=== PATIENT | female | born 1940 | race Hispanic/Latino ===

== ENCOUNTER → 2018-06-13 08:47 | Outpatient (CLI) | payer MEDICARE, OTHER, SELFPAY ==
--- NOTE | 2018-06-13 | DI.US.S_ITS ---
PROCEDURE: US CAROTID DOPPLER BI INDICATIONS: symptoms and signs involving the circulatory TECHNIQUE: Color and pulse Doppler interrogation was performed of both carotid systems, with image documentation and velocity measurements. COMPARISON: [facility], , CAROTID ARTERY DOPPLER BILAT, 06/21/2017, 8:54. FINDINGS: Stenosis calculations are based on SRU (Society of Radiologists in Ultrasound) criteria. Right side: Brachial blood pressure: 104/77 mm Hg. Common carotid artery peak systolic velocity: 72 cm/sec. Internal carotid artery peak systolic velocity: 115 cm/sec. Internal carotid artery end diastolic velocity: 29 cm/sec. External carotid artery peak systolic velocity: 153 cm/sec. ICA/CCA peak systolic ratio: 1.61. Koenig scale imaging description: Calcified plaque Percent internal carotid artery stenosis: Less than 50%. Vertebral artery: Flow direction is antegrade. Left side: Brachial blood pressure: 136/86 mm Hg. Common carotid artery peak systolic velocity: 73 cm/sec. Internal carotid artery peak systolic velocity: 109 cm/sec. Internal carotid artery end diastolic velocity: 22 cm/sec. External carotid artery peak systolic velocity: 94 cm/sec. ICA/CCA peak systolic ratio: 1.48. Koenig scale imaging description: Calcified plaque Percent internal carotid artery stenosis: Less than 50%. Vertebral artery: Flow direction is antegrade. IMPRESSION: Less than 50% stenosis of the internal carotid arteries bilaterally stable compared to 06/21/2017 Dictated by: Ying Perla MD, PhD on 06/14/2018 at 11:47 Approved by: Ying Perla MD, PhD on 06/14/2018 at 11:49
== END ==
PROVIDERS: Visit Provider Internal Medicine Cardiovascular Disease
DX: I65.23 Occlusion and stenosis of bilateral carotid arteries (principal)
CPT/HCPCS: 93880

== ENCOUNTER → 2018-06-30 07:49 | Outpatient (CLI) | payer MEDICARE, OTHER, SELFPAY ==
--- NOTE | 2018-06-30 09:52 | P.PCN_ITS ---
Cardiac Stress Test Report Referral & Results Date Patient Seen: 06/30/18 Requesting provider: Gianni Hernandez Indication: Shortness of breath with exertion Rest ECG: Unremarkable Procedure Note: Today following both written and verbal informed consent the patient was exercised according to a standard Mitul protocol (although patient remained at stage I throughout) patient went for a total of 4 minutes achieving a maximum heart rate of 140 for maximum systolic blood pressure of 160 to. This is approximately 4.6 METS. Exercise was terminated at this point because of dyspnea and inability of patient to continue. Patient was also given Cardiolite through a previously started Hep-Lock IV by the licensed nuclear control room operator approximately 1 minute prior to the cessation of exercise. No ST-T segment changes were identified Patient was tachycardic at rest but had normal blood pressure response Functional aerobic impairment rates about-10% sedentary scale Impression: No ECG evidence of ischemia Please see perfusion imaging report for additional details Please note: Actual ECG tracings can be found in the PACS system.
--- NOTE | 2018-07-03 17:46 | DI.NM.S_ITS ---
DATE OF SERVICE: 06/30/2018 PROCEDURE: Exercise perfusion study. INDICATIONS: Shortness of breath with underlying diabetes mellitus, hypertension, hyperlipidemia. RADIOPHARMACEUTICAL: 25.4 mCi technetium-99m Myoview IV was injected at stress and 26.3 mCi technetium-99m Myoview IV was injected at rest. CARDIAC STRESS: Patient underwent exercise perfusion study under the supervision of an attending staff. She walked on Mitul protocol for 4 minutes 03 seconds achieved 4.6 METs of workload, normal blood pressure response, 101% of target heart rate. Patient felt shortness of breath and could not walk further. Baseline EKG revealed sinus rhythm. Stress EKG did not reveal any obvious inducible ischemic changes. There were no significant arrhythmias seen. RAW DATA: There was adequate myocardial uptick. GATED STUDY: Stress LV ejection fraction 91% and resting LV ejection fraction 87%. LV function appears to be hyperdynamic. No regional wall motion abnormalities. Resting end-diastolic volume is 53 mL. No transient ischemic dilatation. TID ratio is 0.71, which is within normal limits. Lung/heart ratio is 0.30, which is within normal limits. MYOCARDIAL PERFUSION SCAN: Stress supine, resting supine, and stress prone images were compared to each other. Patient had normal myocardial perfusion. CONCLUSION: This is a normal myocardial perfusion study without any evidence of ischemia or infarction. Patient walked on Mitul protocol for 4 minutes 03 seconds with functional aerobic impairment -10%. [place] shortness of breath during exertion. As far as perfusion scan is concerned, this is a low- risk myocardial perfusion scan. Consider pulmonary workup to rule out pulmonary etiology of shortness of breath. Roxann Donohue - JADA/mohsen/ doc#: [id number]/job#: [id number] dd: 07/03/2018 16:56:00 dt: 07/03/2018 17:34:00 DICTATING MD/COPIES TO: Gianni Hernandez MD COPIES MNE: JOSEMANUEL
== END ==
PROVIDERS: Visit Provider Internal Medicine Cardiovascular Disease
DX: R06.02 Shortness of breath (principal); E11.9 Type 2 diabetes mellitus without complications
CPT/HCPCS: 78452; 93016; 93017; 93018; A9502

== ENCOUNTER → 2020-02-11 10:06 | Outpatient (CLI) | payer MEDICARE, OTHER, SELFPAY ==
--- NOTE | 2020-02-11 | DI.US.S_ITS ---
PROCEDURE: US CAROTID DOPPLER BI INDICATIONS: BRUIT OF RIGHT CAROTID ARTERY TECHNIQUE: Color and pulse Doppler interrogation was performed of both carotid systems, with image documentation and velocity measurements. COMPARISON: [facility], XA, SI ANGIOGRAM SUBCLAVIAN, 08/08/2017, 13:32. [facility], , CAROTID ARTERY DOPPLER BILAT, 06/21/2017, 8:54. [facility], , US CAROTID DOPPLER BI, 06/13/2018, 9:15. FINDINGS: Stenosis calculations are based on SRU (Society of Radiologists in Ultrasound) criteria. Right side: Brachial blood pressure: 176/90 mm Hg. Common carotid artery peak systolic velocity: 61 cm/sec. Internal carotid artery peak systolic velocity: 87 cm/sec. Internal carotid artery end diastolic velocity: 21 cm/sec. External carotid artery peak systolic velocity: 111 cm/sec. ICA/CCA peak systolic ratio: 1.4 . Koenig scale imaging description: Atheromatous plaque is noted at the carotid bifurcation Percent internal carotid artery stenosis: Less than 50% stenosis . Vertebral artery: Flow direction is retrograde. This is unchanged from multiple prior studies dating back to June 21, 2017 Left side: Brachial blood pressure: 176/90 mm Hg. Common carotid artery peak systolic velocity: 60 cm/sec. Internal carotid artery peak systolic velocity: 81 cm/sec. Internal carotid artery end diastolic velocity: 18 cm/sec. External carotid artery peak systolic velocity: 66 cm/sec. ICA/CCA peak systolic ratio: 1.4 . Koenig scale imaging description: Atheromatous plaquing calcification is noted at the carotid bifurcation. Percent internal carotid artery stenosis: Less than 50% . Vertebral artery: Flow direction is antegrade. IMPRESSION: 1. Less than 50% stenosis of the bilateral internal carotid arteries. 2. Retrograde flow of the right vertebral artery which is unchanged from 2018 and may be associated with high-grade stenosis or occlusion of the right subclavian artery. Dictated by: Mehgna Vanessa M.D. on 02/11/2020 at 13:50 Approved by: Meghna Vanessa M.D. on 02/11/2020 at 14:00
== END ==
PROVIDERS: PCP Internal Medicine; Referring Provider Internal Medicine; Visit Provider Internal Medicine Cardiovascular Disease
DX: I65.23 Occlusion and stenosis of bilateral carotid arteries (principal); R09.89 Other specified symptoms and signs involving the circulatory and respiratory systems
CPT/HCPCS: 93880

== ENCOUNTER → 2020-07-03 07:27 | Outpatient (CLI) | payer MEDICARE, OTHER, SELFPAY ==
--- NOTE | 2020-07-03 | DI.MRI.S_ITS ---
PROCEDURE: MR HEAD/BRAIN WO/W CON INDICATIONS: Other abnormalities of gait and mobility TECHNIQUE: Noncontrast axial T1 spin echo, axial T2 fast spin echo, sagittal and axial FLAIR, coronal T2 fast spin echo, axial gradient echo, axial diffusion and ADC through the brain. After the administration of contrast, axial and coronal T1 spin echo with fat saturation through the brain. COMPARISON: None. FINDINGS: Image quality: Excellent. CSF spaces: Basal cisterns are patent. No extra-axial fluid collections. Ventricles are normal in size and shape. Brain: No midline shift. No intracranial bleeds or masses. No abnormal intracranial enhancement. There is cerebral volume loss for age. There is periventricular white matter chronic small vessel ischemic change. The brainstem appears normal. Diffusion-weighted images demonstrate no acute ischemic insults. No chronic ischemic insults. Normal intravascular flow voids are present. Skull and face: Calvarial marrow is normal in signal. Orbits appear normal. Sinuses: Sinuses and mastoids appear clear. IMPRESSION: 1. Volume loss and small vessel ischemic disease. 2. No acute process. No recent infarct. Dictated by: Deisy Barraza M.D. on 07/03/2020 at 9:07 Approved by: Deisy Barraza M.D. on 07/03/2020 at 9:08
== END ==
PROVIDERS: PCP Internal Medicine; Referring Provider Internal Medicine; Visit Provider Internal Medicine Cardiovascular Disease
DX: R26.89 Other abnormalities of gait and mobility (principal); I67.89 Other cerebrovascular disease
CPT/HCPCS: 70553

== ENCOUNTER 2020-11-10 16:18 | Emergency (ER) | payer MEDICARE, OTHER, SELFPAY ==
[2020-11-10 16:20] VITALS: BP 184/81; PULSE 102; RESP 22; TEMP 36.4; O2SAT 94
[2020-11-10 20:49] VITALS: BP 127/80; PULSE 81; RESP 12; O2SAT 98
--- NOTE | 2020-11-10 21:19 | ED_ITS ---
HPI - Back Pain/Injury General Chief Complaint: Back Pain/Injury Stated Complaint: LOWER BACK BAD PAIN Time Seen by Provider: 11/10/20 20:33 Source: patient History of Present Illness HPI Narrative: 80-year-old female nonsmoker with noncontributory medical history presents with a chief complaint of many weeks of bilateral low back pain into both hips. She denies any traumatic injury, fever and does not take anticoagulants. She has some numbness down the back of her left thigh more so than the right. She denies any saddle anesthesia. She denies any loss of control of bowel or bladder. She denies any lower extremity weakness. Her pain is worse when she moves and improves with rest. She has been taking Aleve and Tylenol with minimal help. She has seen her primary care provider who referred her for a brace, she has had no imaging. Related Data Previous Rx's Medication Instructions Recorded hydrocodone 5 mg-acetaminophen 325 1 tab PO Q4-6H PRN #10 tab 11/10/20 mg tablet methylprednisolone 4 mg tablets in See Rx Instructions .ROUTE 11/10/20 a dose pack (Medrol (Cristian)) .COMPLEX #21 ea Review of Systems Review of Systems Narrative: GENERAL: Denies chills, fatigue, malaise, fever, sweats. HEENT: Denies sinus pain, ear pain, sore throat, difficulty swallowing, dizziness. RESPIRATORY: Denies dyspnea, cough, wheezing, hemoptysis, sputum. CARDIOVASCULAR: Denies chest pain, palpitations, orthopnea, edema, GASTROINTESTINAL: Denies nausea, vomiting, abdominal pain, diarrhea, cons tipation, melena. : Denies dysuria, frequency, incontinence, hematuria, urinary retention. MUSCULOSKELETAL: See HPI SKIN: Denies rash, skin lesions, or other NEUROLOGIC: See HPI. PSYCHIATRIC: No concerning psychosocial issues. 12 point review of systems is negative except for those stated above Patient History Social History Smoking Status: Current some day smoker Smoking Status: Current some day smoker Exam Narrative Exam Narrative: GENERAL: [80] year old patient appears stated age. Well- developed patient, in mild distress. HEAD: Atraumatic. Normocephalic. EYES: Pupils equal round and reactive. Extraocular motions intact. No scleral icterus. No injection or drainage. ENT: Nose without bleeding, purulent drainage. Throat without erythema, tonsillar hypertrophy or exudate. Airway patent. NECK: Trachea midline. Non tender CARDIOVASCULAR: Regular rate and rhythm without murmurs, gallops, or rubs. RESPIRATORY: Clear to auscultation. Breath sounds equal bilaterally. No wheezes, rales, or rhonchi. GASTROINTESTINAL: Abdomen soft, non-tender, nondistended. EXTREMITIES: No edema or joint tenderness. BACK: decorative cutting machine tender but free of any obvious external abnormalities. Patient exam notes decreased range of motion and muscle spasm, but no CVA tenderness, or vertebral point tenderness. There are no symptoms of cauda equina such as saddle anesthesia, and decreased reflexes, decreased sensation or strength. NEURO: AOx3. SKIN: No rash or erythema of visible areas Initial Vital Signs Initial Vital Signs: Vital Signs Temperature 97.5 F L 11/10/20 16:20 Pulse Rate 102 H 11/10/20 16:20 Respiratory Rate 22 11/10/20 16:20 Blood Pressure 184/81 H 11/10/20 16:20 Pulse Oximetry 94 11/10/20 16:20 Course Orders Ordered: ED Orders 11/10/20 21:24 XR lumbar spine 2-3V Stat Discontinued Medications Hydrocodone Bitart/Acetaminophen (Hydrocodone/Acet 5/325 Prepack) 1 bottle MISC SEEINSTR ONE Stop: 11/10/20 22:14 Last Admin: 11/10/20 22:19 Dose: 1 bottle Documented by: CATE Vital Signs Vital signs: Vital Signs - 8 hr 11/10/20 20:49 11/10/20 22:21 Pulse Rate 81 63 Respiratory Rate 12 16 Blood Pressure 127/80 129/77 Pulse Oximetry 98 97 MDM - Back Pain/Injury Lab Data Labs: Urine Dip Bedside Urine Glucose Negative Bedside Urine Bilirubin - Negative Bedside Urine Ketone - Negative Urine Specific [place] 1.025 Bedside Urine Occult Blood - Negative Bedside Urine pH 6.0 Bedside Urine Protein - Negative Bedside Urine Urobilinogen - Negative Bedside Urine Nitrite - Negative Bedside Urine Leukocytes - Negative Esterase Imaging Data Lumbar Xray: Radiologist's Impression: Charanjit,Roxann 80 F [address] [id number] ReportSigned Patient: Roxann Donohue#: [id number]: 1940cct:[id number]/Sex: 80 / FDate of Service: 11/10/20Loc: EDAccession Number: [id number] Procedure: XR lumbar spine 2-3V Ordering Provider: Olaf Gilmore D.O. PROCEDURE: XR LUMBAR SPINE 2-3V INDICATIONS: severe lumbar pain TECHNIQUE: 3 views of the lumbar spine were acquired. COMPARISON: None. FINDINGS: Bones: 5 [id number] vertebrae are present. Grade 1 anterolisthesis of L4 on L5. Multilevel loss of intervertebral disc space height. Anterior vertebral body osteophytes. Endplate sclerosis. No vertebral body compression fractures. No suspicious bony lesions. Soft tissues: Overlying bowel gas pattern is normal. No suspicious soft tissue calcifications. IMPRESSION: No compression fracture. Extensive DDD. Dictated by: Lul Chiu M.D. on 11/10/2020 at 22:08 Approved by: Lul Chiu M.D. on 11/10/2020 at 22:09 [facility] Narrative Medical decision making narrative: Multiple etiologies of back pain considered including; Epidural abscess, cauda equina, mass occupying lesion, and other considered, however no red flag findings suggestive of a neuro surgical emergency are present. Return precautions given and questions answered to her apparent satisfaction Discharge Plan Departure Patient Disposition: Home Clinical Impression: Bilateral lumbar radiculopathy Instructions: DI for Lumbar Radiculopathy Activity Restrictions/Additional Instructions: *You have been diagnosed with [acute on chronic lumbar pain with radiculopathy] *What to do: *Please continue to take your regular medications as directed. [ x] New medication prescriptions sent to your pharmacy: [Base pharmacy ] [ ] New medication written as a paper prescription [ ] No new medications given *Please follow up with your primary care provider in 2-3 days, call for an appointment. Let them know you were seen in the Emergency Department and that we ask that you be seen in follow up. We will electronically transmit a record of today's note if your PCP is in our system *If you do not have a primary care provider please contact the [facility] Resource line at [phone]. They will ask some questions about your medical history and help get you set up with a doctor in the community. *Return to Emergency Department if you should have any new, worsening or concerning symptoms, such as [fever greater than 101 F, shaking chills, worsening pain, persistent vomiting or other bothersome symptoms] Prescriptions: New hydrocodone-acetaminophen 5-325 mg tablet 1 tab PO Q4-6H PRN (Reason: pain) Qty: 10 RF: 0 methylprednisolone [Medrol (Cristian)] 4 mg tablets,dose pack See Rx Instructions .ROUTE .COMPLEX Qty: 21 RF: 0 Referrals: Hernan Frost MD [Primary Care Provider] -
--- NOTE | 2020-11-10 21:24 | DI.RAD.S_ITS ---
PROCEDURE: XR LUMBAR SPINE 2-3V INDICATIONS: severe lumbar pain TECHNIQUE: 3 views of the lumbar spine were acquired. COMPARISON: None. FINDINGS: Bones: 5 [id number] vertebrae are present. Grade 1 anterolisthesis of L4 on L5. Multilevel loss of intervertebral disc space height. Anterior vertebral body osteophytes. Endplate sclerosis. No vertebral body compression fractures. No suspicious bony lesions. Soft tissues: Overlying bowel gas pattern is normal. No suspicious soft tissue calcifications. IMPRESSION: No compression fracture. Extensive DDD. Dictated by: Lul Chiu M.D. on 11/10/2020 at 22:08 Approved by: Lul Chiu M.D. on 11/10/2020 at 22:09
[2020-11-10] MEDS: HYDROCODONE/ACET 5/325 PREPACK 1 BOTTLE MISC (22:19)
[2020-11-10 22:21] VITALS: BP 129/77; PULSE 63; RESP 16; O2SAT 97
== END 2020-11-10 22:22 | disposition home or self-care (01) ==
PROVIDERS: Emergency Provider Emergency Medicine; PCP Internal Medicine
DX: M54.16 Radiculopathy, lumbar region (principal)
CPT/HCPCS: 72100; 81003; 99283

== ENCOUNTER → 2020-11-28 11:22 | Outpatient (CLI) | payer MEDICARE, OTHER, SELFPAY ==
--- NOTE | 2020-11-28 | DI.MRI.S_ITS ---
PROCEDURE: MR LUMBAR SPINE WO CON INDICATIONS: Lesion of sciatic nerve, left lower limb TECHNIQUE: Noncontrast sagittal T1 spin echo and T2 fast echo, sagittal STIR, axial T1 and T2 fast spin echo through the lumbar spine. In cases with scoliosis, additional coronal T2 fast spin echo may be performed. COMPARISON: None. FINDINGS: Image quality: Excellent. Alignment and Curvature: There is minimal retrolisthesis at L1-L2, with mild retrolisthesis at L2-L3. Minimal retrolisthesis is seen at L3-L4. There is mild grade 1 anterolisthesis at L4-L5. Minimal retrolisthesis can be seen at L5-S1. Bone Marrow: Marrow is of normal overall signal. No acute vertebral body compression fractures. Spinal Cord: Conus medullaris terminates at the T12-L1 level. Visualized cord demonstrates normal signal and size. Paraspinous Soft Tissues: No paravertebral masses. T12-L1: Normal appearance. L1-L2: Moderate to severe loss of disc height and disc signal can be seen. Moderate generalized disc bulge is seen. Mild facet joint hypertrophy is seen. Mild to moderate bilateral neural foraminal narrowing can be seen. Mild to moderate central canal narrowing is seen. L2-L3: Moderate to severe loss of disc height and disc signal can be seen. Reactive marrow endplate changes are seen, which are hyperintense on T1-weighted and T2-weighted imaging and most consistent with fatty metaplasia (Modic type II changes). At least moderate disc bulge is seen, which is eccentric to the left. There is at least moderate facet hypertrophy seen. There is moderate right-sided and moderate to severe left-sided neural foraminal narrowing seen. There is a degree of compression seen upon the exiting left L2 nerve root. At least moderate central canal narrowing is seen. L3-L4: Moderate loss of disc height is seen. Loss of disc signal is seen. Moderate generalized disc bulge is seen. Mild to moderate facet hypertrophy is seen. There is moderate to severe bilateral neural foraminal narrowing seen, left worse than right. There is a degree of compression seen upon the exiting nerve roots. Mild to moderate central canal narrowing is seen. L4-L5: Moderate loss of disc height is seen. Loss of disc signal is seen. Moderate disc bulge is seen, with a central disc bulge/central disc uncovering. Prominent facet hypertrophy is seen at this level. There is moderate to severe bilateral neural foraminal narrowing seen. There is a degree of compression seen upon the exiting nerve roots. Moderate to severe central canal narrowing is seen at this level, as on series 6, image 19. L5-S1: Moderate loss of disc height is seen. Loss of disc signal is seen. Moderate generalized disc bulge is seen, with a mild central disc protrusion. Moderate facet joint hypertrophy is seen. There is moderate right-sided and moderate to severe left-sided neural foraminal narrowing seen. There is a degree of compression seen upon the exiting left L5 nerve root. At least moderate central canal narrowing is seen. IMPRESSION: Multiple levels of lumbar spine degenerative change are seen, which are overall worst at the L4-L5 level. Several sites of significant neural foraminal narrowing can be seen, with associated exiting nerve root compression. Dictated by: Severiano Fuentes M.D. on 11/28/2020 at 11:45 Approved by: Severiano Fuentes M.D. on 11/28/2020 at 11:49
== END ==
PROVIDERS: PCP Family Medicine; Referring Provider Family Medicine; Visit Provider Family Medicine
DX: G57.02 Lesion of sciatic nerve, left lower limb (principal); M47.816 Spondylosis without myelopathy or radiculopathy, lumbar region; M47.817 Spondylosis without myelopathy or radiculopathy, lumbosacral region; M48.061 Spinal stenosis, lumbar region without neurogenic claudication; M48.07 Spinal stenosis, lumbosacral region
CPT/HCPCS: 72148

== ENCOUNTER → 2021-02-09 13:20 | Outpatient (CLI) | payer MEDICARE, OTHER, SELFPAY ==
--- NOTE | 2021-02-09 13:27 | DI.CT.S_ITS ---
PROCEDURE: CT LUMBAR SPINE WO CON INDICATIONS: Spondylolisthesis, lumbar region TECHNIQUE: Noncontrast 3 mm thick sections acquired from the T12 level to the sacrum. Sagittal and coronal reformats were constructed. For radiation dose reduction, the following was used: automated exposure control. COMPARISON: [facility], MR, MR LUMBAR SPINE WO CON, 11/28/2020, 12:00. FINDINGS: Image quality: Excellent. Bones: No acute vertebral body compression fractures. No suspicious lytic or blastic bony lesions. Grade 1 anterolisthesis is seen at the L4-L5 level. No associated pars defects are seen. Minimal retrolisthesis is seen at L1-L2 and L2-L3. Age-appropriate lower thoracic spine degenerative changes are seen. T12-L1: No significant abnormality is seen. L1-L2: At least moderate loss of disc height is seen. Vacuum disc phenomenon is seen at this level. Endplate irregularity and sclerosis can be seen. Moderate disc bulge is seen. Calcification can be seen involving posterior aspect of the annulus fibrosus, as on series 6, image 33. Mild facet joint hypertrophy is seen. There is moderate left-sided and moderate to severe right-sided neural foraminal narrowing seen. Moderate central canal narrowing is seen. L2-L3: At least moderate loss of disc height is seen. Postoperative changes are seen at this level, with removal of portions of posterior elements. Endplate irregularity and sclerosis can be seen. At least moderate disc bulge is seen. Mild facet joint hypertrophy is seen. There is moderate to severe left-sided and [id number] right-sided neural foraminal narrowing seen. At least moderate central canal narrowing is seen at this level. L3-L4: Moderate loss of disc height is seen. At least moderate disc bulge is seen. Moderate facet joint hypertrophy is seen. Moderate bilateral neural foraminal narrowing is seen. Moderate central canal narrowing is seen. L4-L5: Moderate loss of disc height is seen. Loss of disc signal is seen. Vacuum disc phenomenon is seen at this level. At least moderate disc bulge is seen. Prominent facet hypertrophy is seen. Moderate to severe bilateral neural foraminal narrowing can be seen, right worse than left. There is severe central canal narrowing. L5-S1: At least moderate loss of disc height is seen. Moderate to prominent disc bulge is seen. Bridging endplate osteophytes are seen. There is moderate bilateral neural foraminal narrowing seen at this level. Mild to moderate central canal narrowing is seen. Soft tissues: No retroperitoneal masses or hematomas. Visualized aorta is normal in caliber. Atherosclerotic calcification is noted. IMPRESSION: Multiple levels of lumbar spine degenerative change are seen, which are overall most prominent at the L4-L5 level. The degenerative changes are overall better seen on the recent prior MRI examination. Dictated by: Severiano Fuentes M.D. on 02/09/2021 at 17:13 Approved by: Severiano Fuentes M.D. on 02/09/2021 at 17:17
== END ==
PROVIDERS: PCP Family Medicine; Referring Provider Orthopaedic Surgery Orthopaedic Surgery of the Spine; Visit Provider Orthopaedic Surgery Orthopaedic Surgery of the Spine
DX: M43.16 Spondylolisthesis, lumbar region (principal); M47.816 Spondylosis without myelopathy or radiculopathy, lumbar region
CPT/HCPCS: 72131

== ENCOUNTER → 2021-02-16 09:45 | Outpatient (CLI) | payer MEDICARE, OTHER, SELFPAY ==
[2021-02-16 12:45] LABS: COVID19 -Nasal RAPID Negative (Negative)
== END ==
PROVIDERS: PCP Family Medicine; Visit Provider Physician Assistant
DX: Z01.812 Encounter for preprocedural laboratory examination (principal); Z20.822 Contact with and (suspected) exposure to COVID-19
CPT/HCPCS: 87635

== ENCOUNTER 2021-02-18 11:20 | Day surgery (SDC) | payer MEDICARE, OTHER, SELFPAY ==
[2021-02-10 09:46] VITALS: BMI 27.6
[2021-02-18] VITALS (28 sets, daily range): BP systolic 71–164; BP diastolic 43–84; PULSE 94–115; RESP 12–26; TEMP 36.1–36.5; O2SAT 16–100; BMI 27.6
--- NOTE | 2021-02-18 | DI.RAD.S_ITS ---
PROCEDURE: XR LUMBAR SPINE 2-3V INDICATIONS: L4-5 L5-S1 TLIF TECHNIQUE: 3 views of the lumbar spine were acquired. COMPARISON: [facility], DEXTER, XR LUMBAR SPINE 2-3V, 11/10/2020, 21:28. FINDINGS: Spot fluoroscopic images demonstrating L4-L5 and L5-S1 posterior spinal fixation with interbody cage grafts. Expected intraoperative alignment. Dictated by: Oscar Romero M.D. on 02/19/2021 at 11:57 Approved by: Oscar Romero M.D. on 02/19/2021 at 11:58
[2021-02-18] MEDS: LACTATED RINGERS 1,000 ML 42 ML IV ×3 (12:31→19:02)
--- NOTE | 2021-02-18 13:08 | PM.PREOP ---
Pre-operative Note COVID-19 COVID-19 status: Negative Result date/Date tested (Pos, Neg/Pending): 02/16/21 Interval Note History & Physical reviewed/Exam performed by Physician: Yes Changes to H&P: No
[2021-02-18] MEDS: CEFAZOLIN 1 GM VIAL 2 GM IV ×2 (14:15→21:42)
[2021-02-18] MEDS: BUPIVACAINE LIPOSOME 266 MG/20 ML VIAL INJ (14:41)
[2021-02-18] MEDS: BUPIVACAINE 0.25% (PF) 30 ML, EPINEPHrine 0.3 MG INJ (14:41)
--- NOTE | 2021-02-18 14:44 | SUR.OPER ---
Prone on spine table, head in foam head support, padded chest and pelvic supports, gel pad at knees, lower legs supported by pillows; nipples, genitalia and toes free of pressure, gel pad placed between heels, arms secured on foam padded arm boards at <90 degrees abduction. Tape over blanket at thigh secured to table.
--- NOTE | 2021-02-18 17:59 | P.OP_ITS ---
Operative Date/Time/Diagnoses Date of procedure: 02/18/21 Time of procedure: 13:00 Pre-op diagnosis: 1. L4-5, L5-S1 spondylolisthesis 2. L4-5, L5-S1 spinal stenosis with neurogenic claudication Post-op diagnosis: same Procedure & Clinicians Procedure: 1. L4-5, L5-S1 Postero-lateral and posterior interbody fusion 2. L4-5, L5-S1 interbody cage placement. 3. L4-5, L5-S1 decompressive laminectomy with bilateral facetecomies 4. L4-5, L5-S1 Posterior segmental instrumentation 5. [place] of bone marrow from iliac crest 6. Utilization of microsurgical technique and operating microscope 7. Robotic assisted navigation Same procedure as scheduled: Yes Indications: Patient has been having chronic back pain and worsening lumbar radiculopathy. Patient failed multiple conservative management with worsening pain weakness and numbness in her lower extremity. Patient has been having difficulty performing activity of daily living. After discussing risks benefits of treatment options, patient elected proceed with surgery. Surgeon: Guillaume Scuhler Mannequin Mold Maker: Kevon Burrows Click Yes if Unassisted: No Anesthesia Type: General Operative Notes Closure Type: primary Specimen(s): none sent Prosthetic devices, grafts, tissues, transplants, or devices: Globus CREO MIS screws, Rise cages Applied: catheter Estimated Blood Loss (mL): 200 Blood products transfused: none Procedure in detail: Patient was seen in the preoperative area. Risks and benefits of the surgery was discussed with the patient. Informed consent was obtained from the patient and placed in the chart. Surgical site was marked. Patient was taken to the operative room. General anesthesia was administered. Prophylactic antibiotic was given to the patient less than 30 min before the incision was made. Patient was placed into a prone position on the [place]ingo table. Patient's back was then prepped and draped in the sterile fashion. Time-out was performed at this time. After patient was prepped and draped, patient's PSIS was palpated and marked bilaterally. Small 1 cm incision was made over the PSIS for placement of the reference probes. Two trocar was placed into the PSIS 1 on each side. The reference probe was attached to the trocar of the reference apparatus. At this time the C-arm imaging was used to confirm AP and lateral of L4-L5, L5- S1 vertebrae and merged the C-arm imaging using the [employer] robotic navigation system with the CT of the lumbar spine. After successful merging was completed and confirmed, skin marker was used to marcellus out the skin incision using the [employer] robotic arm. Bilateral incision was made at this time. Pre templated trajectory was used and guided using the [employer] robotic navigation system for bilateral L4, L5, S1 pedicle screw placement. This was done by using the robotic arm to guide the high-speed bur to make a cortical entry point. Next a drill was placed also using the robotic arm and guided using the navigation system drilling partially through bilateral L4, L5 and S1 pedicles. Next L4, L5, S1 pedicle screws it was pre templated and measured was placed onto the power lokie driver and inserted into the pedicles bilaterally. After all 6 screws were placed C-arm imaging was taken of both AP and lateral to confirm the placement. Excellent placement of the screws were confirmed and a matched precisely with the pre planned screw placement using the navigation system. MARs retractor was inserted using [employer] gu[employer]. Globus MARS retractors was placed inside the incision and docked onto the L4 and L5 lamina. Using microsurgical technique and operating microscope, a L4, L5 laminectomy and L4-5, L5-S1 facetectomy was performed using a [place] rongeur. Patient was found have severe lateral recess and neural foramen stenosis which was fully decompressed after the laminectomy facetectomy. During process of the laminectomy at L4-5 level, there was identified to have significant amount of adhesion between the ligamentum flavum and the dura. After the laminectomy was completed, there was a small pinhole size dural defect at the L4-5 level on the dorsum aspect. DuraGen and Tisseel was placed into the epidural space on top of the dural defect. There was no CSF leakage. More than 75% of the facets were removed during the process of decompression rendering L4-5, L5-S1 level grossly unstable and required a fusion procedure at the same time. The disc space at L4-5, L5-S1 was identified, and a total diskectomy was performed at L4-5, L5-S1 level. The endplates were decorticated using a rasp and shaver. The total diskectomy and decortication was performed at L4-5, L5-S1 level in order to to accomplish a L4-5, L5-S1 fusion. The local bone from the laminectomy and facetectomy was saved for local bone grafting. After the total diskectomy and d ecortication was completed, Trifecta bone graft material was combined with local bone that was harvested earlier. At this time, a separate skin is incision was made over the iliac crest. A Jamshidi needle was inserted into the iliac crest through a separate skin incision. 5 cc of bone marrow aspiration was obtained through the separate skin incision using a Jamshidi needle from the iliac crest. The bone marrow aspiration was combined with local bone and the Trifecta bone grafting material. The bone grafting material was placed into the L4-5, L5-S1 interbody space along with a expandable cage. The cage was expanded to its maximum height using the torque limiting screwdriver. The disc preparation as well as the cage insertion were also performed under navigation guidance. After the cage was placed, AP and lateral C-arm imaging was taken to confirm placement of the cage and excellent position was confirmed. Globus MARS retractor was inserted and docked onto the L4-5, L5-S1 salesperson children's shoes olateral gutter on the right side. Using the power drill, posterior-lateral decortication was performed at L4-5, L5-S1 level until bleeding cortical bone was identified. The remaining bone grafting material was placed into the L4-5, L5-S1 posterior lateral gutter he order to accomplish posterolateral fusion at the L4-5, L5-S1 level. At this time the tulips were attached to the L4, L5, S1 pedicle screw shanks. After measuring the length of the rods, they were inserted into the tulips of the pedicle screws and locked in place using locking caps and torque limiting screwdriver bilaterally. Total 6 caps and 2 titanium rods was used in order to complete the posterior instrumentation construct. After all the hardware was placed, and confirmed with AP and lateral C-arm imaging, the wound was then irrigated with sterile normal saline and packed with Ray-Lukas gauze for 3 min to accomplish hemostasis. After the gauze was removed the deep fascia was closed with #1 Vicryl suture. The subcutaneous layer was closed with 2-0 Vicryl. The skin was closed with skin denilson. Patient tolerated the procedure well. There were no complications. Neuro monitoring system was used to monitor patient's neurologic status throughout entire procedure. There was no disturbance of the neural monitoring signals throughout the case. Complications: none Post-operative Condition: stable Disposition: PACU Plan for aftercare: Admit to inpatient hospital
[2021-02-18] MEDS: PHENYLEPHRINE HCL IN 0.9% NACL 1 MG/10 ML SYRINGE 100 MG INJ (18:22)
[2021-02-18] MEDS: fentaNYL 100 MCG/2 ML INJ IV ×2 (18:38→18:52)
[2021-02-18] MEDS: OXYCODONE/ACETAMINOPHEN 5/325 TABLET 1 TAB PO (18:54)
[2021-02-18] MEDS: SODIUM CHLORIDE 0.9% 1,000 ML 100 ML IV (20:00)
[2021-02-18] MEDS: buPROPion XL 150 MG TAB PO (21:40)
[2021-02-18] MEDS: DOCUSATE 100 MG CAPSULE PO (21:40)
[2021-02-18] MEDS: ATORVASTATIN 20 MG TABLET 40 MG PO (21:40)
[2021-02-18] MEDS: METOPROLOL ER 25 MG TABLET PO (21:40)
[2021-02-18] MEDS: SENNOSIDES 8.6 MG TABLET 17.2 MG PO (21:41)
[2021-02-19] VITALS (9 sets, daily range): BP systolic 93–118; BP diastolic 49–69; PULSE 72–99; RESP 12–18; TEMP 35.8–36.7; O2SAT 93–96
[2021-02-19] MEDS: HYDROMORPHONE 0.5 MG INJ IV ×3 (04:07→17:46)
[2021-02-19] MEDS: CEFAZOLIN 1 GM VIAL 2 GM IV (04:50)
[2021-02-19 05:39] LABS: Hematocrit 33.6 % (36-46); Hemoglobin 11.1 g/dL (12.0-16.0)
[2021-02-19] MEDS: SODIUM CHLORIDE 0.9% 1,000 ML 100 ML IV ×2 (06:22→18:36)
[2021-02-19] MEDS: METFORMIN HCL 500 MG TABLET PO (08:15)
[2021-02-19] MEDS: buPROPion XL 150 MG TAB PO ×2 (08:15→21:02)
[2021-02-19] MEDS: DOCUSATE 100 MG CAPSULE PO ×2 (08:15→21:02)
--- NOTE | 2021-02-19 11:01 | PT.IIE ---
Current Diagnoses Spondylolisthesis, lumbar region (02/18/21) Spinal stenosis, lumbar region with neurogenic claudication (02/18/21) Surgery Performed Operation Date: 02/18/21 13:15 Actual Procedures p L4-5, L5-S1 TLIF w. posterior instrumentation- Robot - Guillaume Schuler MD Medical History (Last Reviewed 02/19/21 @ 11:03 by Ryann Blanton PA-C) Arthritis COPD (chronic obstructive pulmonary disease) CVA (cerebral vascular accident) Diabetes (~2016) Eczema Emphysema lung HLD (hyperlipidemia) HTN (hypertension) PAD (peripheral artery disease) Sinus tachycardia Physical Therapy Inpatient Evaluation/Re-Eval M1 PT/OT-IP Prior Functional Status Start: 02/19/21 14:17 Freq: NEEDED Status: Active Protocol: Document 02/19/21 11:01 AB (Rec: 02/19/21 14:28 AB [email or web address]) Medical Review Prior Functional Status Medical History Reviewed Yes Communication able to make needs known Mobility and Gait pt stated that she is modified independent with all mobilities and ambulation without AD indoors but uses a 4WW for outdoor mobility Social History Household Members spouse Living Arrangements House Number of Floors (Floors) One Floor Number of Stairs To Enter/Railing? 5 steps B rails to enter Home Environment Standard Height Toilet,Tub/ Shower Home Equipment Front Wheel Walker,Four Wheel Walker M2 PT-IP Current Condition Start: 02/19/21 14:17 Freq: NEEDED Status: Active Protocol: Document 02/19/21 11:01 AB (Rec: 02/19/21 14:28 AB [email or web address]) Physical Therapy Current Condition Current Condition Evaluation Date 02/19/21 Treatment Diagnosis s/p L4-5, L5S1 TLIF; difficulty in walking Onset Date 02/18/21 M3 PT-IP Subjective Start: 02/19/21 14:17 Freq: NEEDED Status: Active Protocol: Document 02/19/21 11:01 AB (Rec: 02/19/21 14:28 AB [email or web address]) Subjective Physical Therapy Visit Type Type Initial Evaluation Visit Start Time 11:01 Visit Stop Time 11:44 Total Visit Minutes 43 Number of LAW OFFICE ASSISTANT Visits 0 Physical Therapy Visit Comments Patient Comments agreeable to do PT; c/o increase pain Therapy Pain Assessment Pain When Pain Assessed At Rest Pain Present Pain Present Pain Reported Location Back Intensity 7 Scale Used Numeric (0 - 10) Pain Management Techniques Apply Cold,Distraction, Modification of Treatment,Re- positioning,Timing of Activity with Medications M4 PT-IP Mobility and Gait Start: 02/19/21 14:17 Freq: NEEDED Status: Active Protocol: Document 02/19/21 11:01 AB (Rec: 02/19/21 14:28 [email or web address]) PT-Bed Mobility Assessment Rolling Type of Rolling Log Rolling Level of Assist Maximal Assistance,2 Person Assistance Supine to Sit Supine to Sit Maximum Assistance,2 Person Assistance Scooting Scooting to Edge of Bed Maximum Assistance PT-Transfer Assessment Sit to and From Stand Sit to and from Stand Maximum Assistance,2 Person Assistance,Use of Upper Extremities Equipment Transfer Assistive Device Gait Belt,Front Wheeled Walker Orthotic/Prosthetic Devices or Brace: No Transfers Transfer Destination Chair Transfer Technique ambulated using FWW Transfer Ability Level of Assist Maximum Assistance,1 Person Assistance,Use of Upper Extremities Comments Mobility Comments educated on back precautions and log roll bed mobility. completed log roll max A x 2 and max cues and supine to sit max A x 2 and max cues. c/o increase pain with increase guarding. tolerated sitting on EOB mod A for balance. agreed to stand and completed sit to stand max A x 2 and max cues. 2 attempts needed to get to standing position. ambulated using FWW max A and max cues ~ 6 ft to chair . positioned pt on chair. call light and table placed wtihin reach. Gait Assessment Gait Gait Assistance Required: Maximum Assistance,1 Person Assist Distance (Feet) 6 Able to Maintain Weight Bearing Status Yes During Gait Assistive Devices Assistive Device Gait Belt,Front Wheeled Walker Orthotic/Prosthetic Devices or Brace: No Gait Deviations General Gait Pattern Antalgic,Decreased Stride Length,Decreased Feet Clearance,Step-to Gait Factors Limiting Gait Function Factors Limiting Gait Function Decreased Activity Tolerance, Decreased Strength,Limited Range of Motion,Pain,Poor Balance PT-Balance Assessment Sitting Balance and Reactions Static Sitting Balance Ability Good Dynamic Sitting Balance Ability Fair Standing Balance and Reactions Static Standing Balance Ability Poor Dynamic Standing Balance Ability Poor Device Used FWW M5 PT-IP Objective Assessments Start: 02/19/21 14:17 Freq: NEEDED Status: Active Protocol: Document 02/19/21 11:01 AB (Rec: 02/19/21 14:28 [email or web address]) Orientation Orientation/Cognition Level of Alertness Alert Orientation Name,Age,Birthday,Month,Place, Situation Language Function Ability No Deficits Noted Safety Awareness Decreased Safety Awareness Gross Range of Motion Lower Extremity ROM Assessment Within Functional Limits Strength Lower Extremity Strength Assessment Bilaterally Impaired Hip 3+/5 Knee 3+/5 Comments Strength Comments pain limiting movement on BLE Sensation Assessment Sensation Gross Sensation WNL Muscle Tone Muscle Tone WNL Yes M6 PT-IP Treatment Start: 02/19/21 14:17 Freq: NEEDED Status: Active Protocol: Document 02/19/21 11:01 AB (Rec: 02/19/21 14:28 [email or web address]) Physical Therapy Treatment Education Education Provided Precautions,Weight Bearing Status,Safety M7 PT-IP Assessment and Plan Start: 02/19/21 14:17 Freq: NEEDED Status: Active Protocol: Document 02/19/21 11:01 AB (Rec: 02/19/21 14:28 [email or web address]) PT Summary Assessment and Plan Potential Rehabilitation Potential Fair Status of Condition at Evaluation Evolving Summary Impairments Pain,ROM,Strength,Balance, Coordination,Sensation,Tone, Cognition,Bed Mobility, Transfers,Gait,Activity Tolerance Assessment Summary pt requiring max A x2 with bed mobility and sit to stand but able to ambulate max A using fWW. pt c/o increase pain affecting mobility. caregiver training set up for tomorrow at 1030 am. will continue to assess safety. Goals Bed Mobility Goal Standby Assistance Transfer Goal Standby Assistance,Front Wheeled Walker Gait Goal Standby Assistance,Front Wheel Walker Gait Distance 150 Other Goals up/down 5 steps B rails SBA Days to Meet Goals 5 Frequency of Treatment Frequency Of Treatment Twice a Day Treatment Plan Physical Therapy Treatment Plan Bed Mobility Training,Transfer Training,Gait Training, Therapeutic Exercise,Balance Retraining,Post Op Education, Discharge Planning,Hot or Cold Pack,Neuromuscular Re-ed, Coordination Retraining,Manual Therapy Other Recommendations and Next Treatment caregiver trainin02/20/21 @ [facility] 1030 am Precautions Lumbar Precautions Log Roll,No Twisting,Limit Bending,Lifting Restriction of 10 lbs,Gait Belt above Incisional Area Recommendations To Nursing Amount of Assist Needed 2 Person Assist Discharge Recommendations PT Discharge Recommendations Home with 24/ Assist Available,Home Health Transportation Needs at Discharge Private Vehicle
--- NOTE | 2021-02-19 11:02 | P.PN_ITS ---
Subjective Subjective Date Patient Seen: 02/19/21 Time Patient Seen: 11:02 Interval history: The patient is complaining of moderate to severe low back pain. She has not been consistently using her oral pain medications. She tried work with OT but was in too much pain. She denies any new numbness or tingling. No fevers, chills, night sweats. Her plan is to eventually be discharged home under the care of her , although that will likely not be today Exam Vital Signs (past 8 hours): - 02/19/21 05:02 02/19/21 09:20 Temperature 97.8 F 96.5 F L Pulse Rate 85 83 Respiratory Rate 14 15 Blood Pressure 111/61 105/59 L Pulse Oximetry 94 95 Oxygen Delivery Method Nasal Cannula Oxygen Flow Rate 0 Narrative Exam Narrative: Pleasant 80-year-old female, resting in bed, mild distress due to pain. Dressing has bloody drainage on the left lateral incision. No surrounding erythema or induration. Bilateral lower extremity motor function is grossly intact. Sensation is grossly intact to light touch in bilateral lower e xtremities. Calves are soft, nontender to palpation. Objective Labs Result Diagrams: 02/19/21 05:00 Labs: Laboratory Results - last 24 hr 02/19/21 05:00 Hgb 11.1 L Hct 33.6 L PFSH Medical History Arthritis COPD (chronic obstructive pulmonary disease) CVA (cerebral vascular accident) Diabetes (~2016) Eczema Emphysema lung HLD (hyperlipidemia) HTN (hypertension) PAD (peripheral artery disease) Sinus tachycardia Surgical History History of bilateral tubal ligation History of section History of PTCA (07/31/20) Hx of bilateral cataract extraction Hx of repair of right rotator cuff Social History household members: spouse Smoking Status: Former smoker alcohol intake: never Assessment & Plan Post-op Postoperative Procedures: Procedures Operation Date: 02/18/21 13:15 Actual Procedure Side Surgeon p L4-5, L5-S1 TLIF w. posterior instrumentation- Robot Guillaume Schuler MD Postoperative day: 1 Postoperative status: marginal pain control Postoperative status narrative: Stable status post L4-5, L5-S1 TLIF -marginal pain control Postoperative plan narrative: -mobilize with PT. Limit bending, lifting, twisting. Weightbearing as tolerated front wheel walker -encouraged patient to stay ahead of the pain by taking her oral pain medica tions. -disposition likely home tomorrow once cleared by PT and pain is better controlled Quality VTE Deep Vein Thrombosis/Pulmonary Embolism Present on Admission: Yes
--- NOTE | 2021-02-19 15:00 | PT.IPTN ---
Current Diagnoses Spondylolisthesis, lumbar region (02/18/21) Spinal stenosis, lumbar region with neurogenic claudication (02/18/21) Surgery Performed Operation Date: 02/18/21 13:15 Actual Procedures p L4-5, L5-S1 TLIF w. posterior instrumentation- Robot - Guillaume Schuler MD Physical Therapy Treatment Note M2 PT-IP Current Condition Start: 02/19/21 14:17 Freq: NEEDED Status: Active Protocol: Document 02/19/21 11:01 AB (Rec: 02/19/21 14:28 AB [email or web address]) Physical Therapy Current Condition Current Condition Evaluation Date 02/19/21 Treatment Diagnosis s/p L4-5, L5S1 TLIF; difficulty in walking Onset Date 02/18/21 M3 PT-IP Subjective Start: 02/19/21 14:17 Freq: NEEDED Status: Active Protocol: Document 02/19/21 15:00 AB (Rec: 02/19/21 17:15 AB [email or web address]) Subjective Physical Therapy Visit Type Type Treatment Note Visit Start Time 15:00 Visit Stop Time 15:40 Total Visit Minutes 40 Number of FARM SERVICE ADVISER Visits 0 Physical Therapy Visit Comments Patient Comments agreeble to do PT Therapy Pain Assessment Pain When Pain Assessed At Rest Pain Present Pain Present Pain Reported Location Back Intensity 5 Scale Used Numeric (0 - 10) Pain Management Techniques Distraction,Modification of Treatment,Re-positioning, Timing of Activity with Medications M4 PT-IP Mobility and Gait Start: 02/19/21 14:17 Freq: NEEDED Status: Active Protocol: Document 02/19/21 15:00 AB (Rec: 02/19/21 17:15 AB [email or web address]) PT-Bed Mobility Assessment Rolling Type of Rolling Log Rolling Level of Assist Maximal Assistance Sit to Supine Sit to Supine Maximum Assistance,1 Person Assistance,Bedrails PT-Transfer Assessment Sit to and From Stand Sit to and from Stand Moderate Assistance,1 Person Assistance,Use of Upper Extremities Equipment Transfer Assistive Device Front Wheeled Walker Orthotic/Prosthetic Devices or Brace: No Transfers Transfer Destination Bed Transfer Technique ambulated using FWW Transfer Ability Level of Assist Minimal Assistance,1 Person Assistance,Use of Upper Extremities Comments Mobility Comments pt seated on chair. agreed to do PT and requested to go back to bed afterwards. completed sit to stand mod A and cues. ambulated in room using FWW min A ~ 40 ft. ambulated to bed and completed sit to supine max A and max cues for log roll technique. positioned pt in bed. call light and table placed within reach. pt confirmed that her spouse will come in tomorrow at 1030 am for cargiver training. Gait Assessment Gait Gait Assistance Required: Minimum Assistance Distance (Feet) 40 Able to Maintain Weight Bearing Status Yes During Gait Assistive Devices Assistive Device Gait Belt,Front Wheeled Walker Orthotic/Prosthetic Devices or Brace: No Gait Deviations General Gait Pattern Decreased Stride Length, Decreased Feet Clearance Factors Limiting Gait Function Factors Limiting Gait Function Decreased Activity Tolerance, Decreased Strength,Limited Range of Motion,Pain,Poor Balance,Poor Safety Awareness M5 PT-IP Objective Assessments Start: 02/19/21 14:17 Freq: NEEDED Status: Active Protocol: Document 02/19/21 11:01 AB (Rec: 02/19/21 14:28 AB [email or web address]) Orientation Orientation/Cognition Level of Alertness Alert Orientation Name,Age,Birthday,Month,Place, Situation Language Function Ability No Deficits Noted Safety Awareness Decreased Safety Awareness Gross Range of Motion Lower Extremity ROM Assessment Within Functional Limits Strength Lower Extremity Strength Assessment Bilaterally Impaired Hip 3+/5 Knee 3+/5 Comments Strength Comments pain limiting movement on BLE Sensation Assessment Sensation Gross Sensation WNL Muscle Tone Muscle Tone WNL Yes M6 PT-IP Treatment Start: 02/19/21 14:17 Freq: NEEDED Status: Active Protocol: Document 02/19/21 15:00 AB (Rec: 02/19/21 17:15 [facility] Physical Therapy Treatment Education Education Provided Precautions,Safety M7 PT-IP Assessment and Plan Start: 02/19/21 14:17 Freq: NEEDED Status: Active Protocol: Document 02/19/21 15:00 AB (Rec: 02/19/21 17:15 [facility] PT Summary Assessment and Plan Summary Impairments Pain,ROM,Strength,Balance, Cognition,Bed Mobility, Transfers,Gait,Activity Tolerance Progress Towards Goals Slow Progress due to Pain Assessment Summary pt improving slowly with mobility but continues to require max A for bed mobility , mod A for sit to and and min A for ambulation using FWW. caregiver training set up for tomorrow at 1030 am. pt also has stairs to enter the house and has to be completed prior to d/c. Goals Bed Mobility Goal Standby Assistance Transfer Goal Standby Assistance,Front Wheeled Walker Gait Goal Standby Assistance,Front Wheel Walker Gait Distance 150 Other Goals up/down 5 steps B rails SBA Days to Meet Goals 5 Frequency of Treatment Frequency Of Treatment Twice a Day Treatment Plan Physical Therapy Treatment Plan Bed Mobility Training,Transfer Training,Gait Training, Therapeutic Exercise,Balance Retraining,Post Op Education, Discharge Planning,Hot or Cold Pack,Neuromuscular Re-ed, Coordination Retraining,Manual Therapy Other Recommendations and Next Treatment caregiver trainin02/20/21 @ [facility] 1030 am Precautions Lumbar Precautions Log Roll,No Twisting,Limit Bending,Lifting Restriction of 10 lbs,Gait Belt above Incisional Area Recommendations To Nursing Amount of Assist Needed 1 Person Assist Discharge Recommendations PT Discharge Recommendations Home with 25/10 Assist Available,Home Health Transportation Needs at Discharge Private Vehicle
--- NOTE | 2021-02-19 16:41 | OT.IPNOTE ---
Attempted OT eval with pt and tried to initiate getting the pt up but in too much pain. Able to get prior history and initiate education with pt, no charge. To do formal Ot eval tomorrow.
--- NOTE | 2021-02-19 19:42 | PC.NURSE ---
A&O x4. NS going @ 100. 1 L o2 stating 94-96%. Pain controlled well with PRN IV dilauded. Had some nausea this morning with breakfast but was able to eat lunch and dinner. Not drinking much fluids, encouraged her to drink her water. Catheter drianing yellow urine. Scant shadow drainage on left lower dressing. Call light within reach, bed low.
[2021-02-19] MEDS: METOPROLOL ER 25 MG TABLET PO (21:02)
[2021-02-19] MEDS: ATORVASTATIN 20 MG TABLET 40 MG PO (21:02)
[2021-02-19] MEDS: SENNOSIDES 8.6 MG TABLET 17.2 MG PO (21:02)
[2021-02-19] MEDS: LOSARTAN 25 MG TABLET PO (21:03)
[2021-02-20 00:52] VITALS: BP 116/60; PULSE 94; RESP 18; TEMP 36.6; O2SAT 96
[2021-02-20] MEDS: OXYCODONE IR 5 MG TABLET 10 MG PO ×3 (03:27→12:37)
[2021-02-20 03:32] VITALS: BP 109/67; PULSE 92; RESP 18; TEMP 36.2; O2SAT 94
--- NOTE | 2021-02-20 03:33 | PC.NURSE ---
Pt. inadvertently pulled her IV out, VS, pt. is drinking adequate fluids, UO adequate and pt. declines another IV placed at this time. Pt. given 10 mg Oxycodone for pain, will monitor.
[2021-02-20 06:17] VITALS: BP 108/61; PULSE 92; RESP 14; TEMP 37.3; O2SAT 95
[2021-02-20] MEDS: METFORMIN HCL 500 MG TABLET PO (08:34)
[2021-02-20] MEDS: DOCUSATE 100 MG CAPSULE PO (08:34)
[2021-02-20] MEDS: ACETAMINOPHEN 325 MG TABLET 650 MG PO (08:34)
[2021-02-20] MEDS: buPROPion XL 150 MG TAB PO (08:34)
[2021-02-20 09:30] VITALS: O2SAT 94
[2021-02-20 09:55] VITALS: BP 93/57; PULSE 97; RESP 16; TEMP 36.5; O2SAT 94
--- NOTE | 2021-02-20 10:31 | PM.DS.1 ---
History of Present Illness History of Present Illness Date Patient Seen: 02/20/21 Time Patient Seen: 10:32 Chief complaint: Translam Intrbody Fus./Laminotomy - Robot *OPB* Narrative: The patient is complaining of mild low back pain this morning. She is improving greatly from yesterday. She is anxious to work with physical therapy and to be discharged home. She denies any new numbness or tingling. No fevers, chills, night sweats. Discharge Providers Provider Discharge Date: 02/20/21 Primary care physician: Alessio Gibson DO Consults: 02/18/21 19:29 Consult to Occupational Therapy Evaluate & Treat Comment: Physician Instructions: Evaluate and treat Consult to Physical Therapy Evaluate & Treat Comment: Physician Instructions: Evaluate and Treat Discharge provider: Ryann Blanton PA-C Summary Hospital Course Discharge Diagnosis: 1. L4-5, L5-S1 spondylolisthesis 2. L4-5, L5-S1 spinal stenosis with neurogenic claudication Hospital Course: Date of procedure: 02/18/21 Time of procedure: 13:00 Procedure & Clinicians Procedure: 1. L4-5, L5-S1 Postero-lateral and posterior interbody fusion 2. L4-5, L5-S1 interbody cage placement. 3. L4-5, L5-S1 decompressive laminectomy with bilateral facetecomies 4. L4-5, L5-S1 Posterior segmental instrumentation 5. Bandy of bone marrow from iliac crest 6. Utilization of microsurgical technique and operating microscope 7. Robotic assisted navigation Same procedure as scheduled: Yes Indications: Patient has been having chronic back pain and worsening lumbar radiculopathy. Patient failed multiple conservative management with worsening pain weakness and numbness in her lower extremity.? Patient has been having difficulty performing activity of daily living.? After discussing risks benefits of treatment options, patient elected proceed with surgery. Surgeon: Guillaume Schuler Project Management Professional: Kevon Burrows Click Yes if Unassisted: No Anesthesia Type: General Operative Notes Closure Type: primary Specimen(s): none sent Prosthetic devices, grafts, tissues, transplants, or devices: Globus CREO MIS screws, Rise cages Applied: catheter Estimated Blood Loss (mL): 200 Blood products transfused: none Status at Discharge Cognitive/behavioral status at discharge: oriented Functional status at discharge: uses cane/walker Overall status at discharge: patient is progressing back to baseline Exam Vital Signs (past 8 hours): - 02/20/21 03:32 02/20/21 06:17 02/20/21 09:30 Temperature 97.1 F L 99.1 F Pulse Rate 92 H 92 H Respiratory Rate 18 14 Blood Pressure 109/67 108/61 Pulse Oximetry 94 95 94 02/20/21 09:55 Temperature 97.7 F Pulse Rate 97 H Respiratory Rate 16 Blood Pressure 93/57 L Pulse Oximetry 94 Oxygen Delivery Method Room Air Oxygen Flow Rate 0 Narrative Exam Narrative: Pleasant 80-year-old female, sitting comfortably on the side of her bed, no acute distress. Dressing demonstrates the left lateral incision has bloody drainage. Otherwise clean, dry, intact. No surrounding erythema or induration. Bilateral lower extremity motor function is grossly intact. Sensation is grossly intact to light touch in bilateral lower extremities. Calves are soft, nontender to palpation. Objective Labs Result Diagrams: 02/19/21 05:00 [facility] Medical History Arthritis COPD (chronic obstructive pulmonary disease) CVA (cerebral vascular accident) Diabetes (~2015) Eczema Emphysema lung HLD (hyperlipidemia) HTN (hypertension) PAD (peripheral artery disease) Sinus tachycardia Surgical History History of bilateral tubal ligation History of section History of PTCA (07/31/20) Hx of bilateral cataract extraction Hx of repair of right rotator cuff Social History household members: spouse Smoking Status: Former smoker alcohol intake: never Discharge Assessment & Plan Assessment and Plan Assessment: Stable status post TLIF Plan of Treatment: -mobilize with PT. Limit bending, lifting, twisting. Weightbearing as tolerated with front wheel walker -continue with current pain regimen -DC home today once cleared by PT Discharge Plan Discharge Plan Patient Disposition: Home Discharge orders & Medications Discharge Orders: Discharge (Order); Ordered 02/20/21 Ordered By: Ryann Blanton Prescriptions: New acetaminophen 500 mg capsule 500 mg PO Q4H MDD Max 6 tabs per day PRN (Reason: Pain, Mild (1-3)) Qty: 90 0RF docusate sodium 100 mg Capsule 100 mg PO BID PRN (Reason: As needed for constipation from narcotic pain meds) Qty: 30 0RF oxycodone 5 mg Tablet See Rx Instructions .ROUTE .COMPLEX PRN (Reason: Pain, Severe (7-10)) Qty: 42 0RF Rx Instructions: Take 1-2 tablets by mouth every 4 hours as needed for moderate to severe pain Continued atorvastatin 40 mg Tablet 40 mg PO BEDTIME 0RF metformin 500 mg Tablet 500 mg PO QAM 0RF clopidogrel 75 mg Tablet 75 mg PO DAILY 0RF aspirin [Aspirin Low Dose] 81 mg Tablet,Delayed Release (Dr/Ec) 81 mg PO DAILY 0RF losartan 25 mg Tablet 25 mg PO BEDTIME 0RF nitroglycerin 0.4 mg Tablet, Sublingual 0.4 mg SUBLINGUAL Q5-15M PRN (Reason: Chest Pain) 0RF metoprolol succinate 25 mg Tablet Extended Release 24 Hr 25 mg PO BEDTIME 0RF albuterol sulfate [ProAir HFA] 90 mcg/actuation Hfa Aerosol Inhaler 2 puff INHALATION Q4-6H PRN (Reason: Shortness Of Breath) 0RF ipratropium bromide 0.02 % Solution 2.5 ml INHALATION Q6H PRN (Reason: Shortness Of Breath) 0RF Rx Instructions: Via nebulizer bupropion HCl [Wellbutrin XL] 150 mg Tablet Extended Release 24 Hr 150 mg PO BID 0RF Follow up/Referrals: Alessio Gibson DO [Primary Care Provider] - Guillaume Schuler MD [Physician] - (10-14 days for postoperative visit) Diet/Activity/Treatments Diet: Diet as Tolerated and Regular Other treatments: Medications: -OTC Tylenol 500 mg 1 tablet every 4 hours as needed for pain/fever. Max 6 tablets per day. -Oxycodone 5 mg take 1-2 tablets every 4 hours as needed for moderate-severe pain (narcotic pain medication). -As needed medications: -Ducolax and /or MiraLax as needed for constipation from narcotic pain medications. -Pepcid AC as needed for stomach upset. Dressing/Wound care: -Keep dressing in place until postoperative follow-up office visit. -Okay to shower. Keep wound out of direct water stream. Can use PressNSeal plastic wrap to protect from shower stream. No soaking or submerging until all the scabs fall off (approximately 6 weeks). -Please call the office if dressing becomes wet, soiled, or saturated. Activities: -Limit bending, lifting, twisting. -Weight-bearing as tolerated. Use front wheeled walker, and progress to cane when safe. -Continue with home exercises as directed by your physical therapist. -Ice your incision as needed for pain/inflammation/swelling. Protect your skin with a folded pillowcase. Follow-up: -Follow-up with your surgeon or PA in the office in 10-14 days after surgery. -Follow-up with your surgeon 6 weeks postoperatively. Call the office if you have chest pain, shortness of breath, significant swelling that will not resolve with elevating, fever over 101?, significantly worsening pain. [facility]: [phone] Skin/Wound/Dressing Care Report to your healthcare provider any signs of infection, such as:: chills, fever, night sweats, unusual drainage and unusual redness Visit Report/Discharge Packet Instructions: DI for Transforaminal Lumbar Interbody Fusion Stand Alone Forms: Surgery Discharge Discharge Data Primary Care Provider: Alessio Gibson Attending Provider: Guillaume Schuler VTE Deep Vein Thrombosis/Pulmonary Embolism Present on Admission: Yes
--- NOTE | 2021-02-20 10:50 | PT.IPTN ---
Current Diagnoses Spondylolisthesis, lumbar region (02/18/21) Spinal stenosis, lumbar region with neurogenic claudication (02/18/21) Surgery Performed Operation Date: 02/18/21 13:15 Actual Procedures p L4-5, L5-S1 TLIF w. posterior instrumentation- Robot - Guillaume Schuler MD Physical Therapy Treatment Note M2 PT-IP Current Condition Start: 02/19/21 14:17 Freq: NEEDED Status: Active Protocol: Document 02/19/21 11:01 AB (Rec: 02/19/21 14:28 AB [id number]) Physical Therapy Current Condition Current Condition Evaluation Date 02/19/21 Treatment Diagnosis s/p L4-5, L5S1 TLIF; difficulty in walking Onset Date 02/18/21 M3 PT-IP Subjective Start: 02/19/21 14:17 Freq: NEEDED Status: Active Protocol: Document 02/20/21 10:50 AB (Rec: 02/20/21 12:32 AB [email or web address]) Subjective Physical Therapy Visit Type Type Treatment Note Visit Start Time 10:50 Visit Stop Time 11:32 Total Visit Minutes 42 Number of 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 ROOTING 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 Visits 0 Physical Therapy Visit Comments Patient Comments agreeable to do PT; spouse in room for caregiver training Therapy Pain Assessment Pain When Pain Assessed At Rest Pain Present Pain Present Pain Reported Location Back Intensity 5 Scale Used Numeric (0 - 10) Pain Management Techniques Distraction,Modification of Treatment,Re-positioning, Timing of Activity with Medications M4 PT-IP Mobility and Gait Start: 02/19/21 14:17 Freq: NEEDED Status: Active Protocol: Document 02/20/21 10:50 AB (Rec: 02/20/21 12:32 AB [id number]) PT-Bed Mobility Assessment Rolling Type of Rolling Log Rolling Level of Assist Moderate Assistance,Maximal Assistance,2 Person Assistance Supine to Sit Supine to Sit Moderate Assistance,Maximum Assistance,1 Person Assistance Sit to Supine Sit to Supine Moderate Assistance,Maximum Assistance,1 Person Assistance PT-Transfer Assessment Sit to and From Stand Sit to and from Stand Contact Guard Assistance, Minimal Assistance,1 Person Assistance Equipment Transfer Assistive Device Gait Belt,Front Wheeled Walker Orthotic/Prosthetic Devices or Brace: No Comments Mobility Comments pt sitting on EOB and spouse in room with pt. caregiver training conducted. educated spouse regarding pt's back precautions/log roll bed mobility, use of safety belt and how to assist pt. spouse was able to put safety belt on pt, assisted pt with ambulation in room using FWW ~ 30 ft CGA. pt then completed susan roll sit<>supine mod to max A with max cues from PT. pt repeated bed mobility and with spouse assisting this time and completed safely. pt agreed to do stairs. pt ambulated in the [facility] ~ 150 ft using FWW with spouse assisting. completed up/down steps using bilateral rails CGA to min A with spouse assisting and completed safely . pt ambulated back to her room ~ 250 ft using fWW CGA. pt sat on EOB. pt does not want to sit on the chair. call light and table placed next to pt. Left pt with spouse. informed nurse regarding pt's mobility. Gait Assessment Gait Gait Assistance Required: Contact Guard Assist Distance (Feet) 250 Able to Maintain Weight Bearing Status Yes During Gait Assistive Devices Assistive Device Gait Belt,Front Wheeled Walker Orthotic/Prosthetic Devices or Brace: No Gait Deviations General Gait Pattern Decreased Stride Length, Decreased Feet Clearance Factors Limiting Gait Function Factors Limiting Gait Function Decreased Activity Tolerance, Decreased Strength,Limited Range of Motion,Pain,Poor Balance,Poor Safety Awareness Comments Gait Comments pls refer to mobility section for details Stair Climbing Assessment Evaluation Level of Assist On Stairs Contact Guard Assistance, Minimal Assistance Devices Stair Climbing Assistive Devices Left Railing,Right Railing Technique/Endurance Stair Climbing Direction Ascend and Descend Stair Climbing Technique Step to Step Number of Steps Climbed 3 Stair Climbing Set # Repetitions (reps) 1 M5 PT-IP Objective Assessments Start: 02/19/21 14:17 Freq: NEEDED Status: Active Protocol: Document 02/19/21 11:01 AB (Rec: 02/19/21 14:28 AB [id number]) Orientation Orientation/Cognition Level of Alertness Alert Orientation Name,Age,Birthday,Month,Place, Situation Language Function Ability No Deficits Noted Safety Awareness Decreased Safety Awareness Gross Range of Motion Lower Extremity ROM Assessment Within Functional Limits Strength Lower Extremity Strength Assessment Bilaterally Impaired Hip 3+/5 Knee 3+/5 Comments Strength Comments pain limiting movement on BLE Sensation Assessment Sensation Gross Sensation WNL Muscle Tone Muscle Tone WNL Yes M6 PT-IP Treatment Start: 02/19/21 14:17 Freq: NEEDED Status: Active Protocol: Document 02/20/21 10:50 AB (Rec: 02/20/21 12:32 AB [id number]) Physical Therapy Treatment Education Education Provided Precautions,Weight Bearing Status,Safety M7 PT-IP Assessment and Plan Start: 02/19/21 14:17 Freq: NEEDED Status: Active Protocol: Document 02/20/21 10:50 AB (Rec: 02/20/21 12:32 AB [id number]) PT Summary Assessment and Plan Potential Rehabilitation Potential Good Summary Impairments Pain,ROM,Strength,Balance, Coordination,Sensation,Tone, Cognition,Bed Mobility, Transfers,Gait,Activity Tolerance Progress Towards Goals Progressing Toward Goals Assessment Summary caregiver training completed and spouse was able to assist pt with mobility. pt may go home when medically stable. Goals Bed Mobility Goal Standby Assistance Transfer Goal Standby Assistance,Front Wheeled Walker Gait Goal Standby Assistance,Front Wheel Walker Gait Distance 150 Other Goals up/down 5 steps B rails SBA Days to Meet Goals 5 Frequency of Treatment Frequency Of Treatment Twice a Day Treatment Plan Physical Therapy Treatment Plan Bed Mobility Training,Transfer Training,Gait Training, Therapeutic Exercise,Balance Retraining,Post Op Education, Discharge Planning,Hot or Cold Pack,Neuromuscular Re-ed, Coordination Retraining,Manual Therapy Precautions Lumbar Precautions Log Roll,No Twisting,Limit Bending,Lifting Restriction of 10 lbs,Gait Belt above Incisional Area Recommendations To Nursing Amount of Assist Needed 1 Person Assist Discharge Recommendations PT Discharge Recommendations Home with 25/10 Assist Available,Home Health Transportation Needs at Discharge Private Vehicle
[2021-02-20 11:20] VITALS: O2SAT 96
--- NOTE | 2021-02-20 12:06 | OT.IP.EVAL ---
Current Diagnoses Spondylolisthesis, lumbar region (02/18/21) Spinal stenosis, lumbar region with neurogenic claudication (02/18/21) Surgery Performed Operation Date: 02/18/21 13:15 Actual Procedures p L4-5, L5-S1 TLIF w. posterior instrumentation- Robot - Guillaume Schuler MD Past Medical History (Last Reviewed 02/20/21 @ 10:34 by Ryann Blanton PA-C) Arthritis COPD (chronic obstructive pulmonary disease) CVA (cerebral vascular accident) Diabetes (~2016) Eczema Emphysema lung History of bilateral tubal ligation History of section History of PTCA (07/31/20) HLD (hyperlipidemia) HTN (hypertension) Hx of bilateral cataract extraction Hx of repair of right rotator cuff PAD (peripheral artery disease) Sinus tachycardia Surgical History (Last Reviewed 02/20/21 @ 10:34 by Ryann Blanton PA-C) History of bilateral tubal ligation History of section History of PTCA (07/31/20) Hx of bilateral cataract extraction Hx of repair of right rotator cuff Occupational Therapy Inpatient Evaluation/Re-Eval M1 PT/OT-IP Prior Functional Status Start: 02/19/21 14:17 Freq: NEEDED Status: Active Protocol: Document 02/20/21 11:42 [facility] (Rec: 02/20/21 12:32 [facility] [id number]) Medical Review Prior Functional Status Medical History Reviewed Yes Communication able to make needs known Mobility and Gait pt stated that she is modified independent with all mobilities and ambulation without AD indoors but uses a 4WW for outdoor mobility Activities of Daily Living and IADL's Pt states prior able to do all her needs but had increased pain. Social History Household Members spouse Living Arrangements House Number of Floors (Floors) One Floor Number of Stairs To Enter/Railing? 5 steps B rails to enter Home Environment Standard Height Toilet,Tub/ Shower Home Equipment Front Wheel Walker,Four Wheel Walker M2 OT-IP Current Condition Start: 02/20/21 12:19 Freq: Status: Active Protocol: Document 02/20/21 11:42 [facility] (Rec: 02/20/21 12:32 [facility] [id number]) Occupational Therapy Current Condition Current Condition Evaluation Date 02/20/21 Treatment Diagnosis S/P L4-5, L5-S1 TLIF Diagnosis Onset Date 02/18/21 M3 OT- IP Subjective and Pain Start: 02/20/21 12:19 Freq: Status: Active Protocol: Document 02/20/21 11:42 [facility] (Rec: 02/20/21 12:32 [facility] [id number]) OT- Subjective Occupational Therapy Visit Type Type Initial Evaluation Visit Start Time 11:42 Visit Stop Time 12:06 Total Visit Minutes 24 Occupational Therapy Visit Comments Patient Comments Pt wanting to get dressed and pt's present for caregiver training. Patient/Caregiver Goals TO go home. OT Pain Assessment Pain When Pain Assessed During Mobility Pain Present Pain Present Pain Reported M4 OT- IP ADL's Start: 02/20/21 12:19 Freq: Status: Active Protocol: Document 02/20/21 11:42 [facility] (Rec: 02/20/21 12:32 [facility] [id number]) OT ADL-Oral Care Comments Oral Care Comments Educated best to spit into a cup to best follow her hip precautions. OT ADL-Dressing General Eval Lower Body Dressing Ability Maximum Assistance Comments OT Dressing Comments Able to show and issue pt and her use of LB dressing equipment. OT ADL-Toileting Comments OT Toileting Comments Educated best to have pad at night and possible BSC as pt is a bit impulsive and would be safer to have BSC next to her instead of trying to go up to use the bathroom without calling her as he is hard to wake up at night per pt. OT ADL-Bathing Comments OT Bathing Comments Pt wanting to shower at home. Educated best to have a shower chair at home for safety. M5 OT- IP IADL's Start: 02/20/21 12:19 Freq: Status: Active Protocol: Document 02/20/21 11:42 [facility] (Rec: 02/20/21 12:32 [facility] [id number]) OT-Instrumental Activities of Daily Living Home Safety Awareness Home Safety Comments Pt a bit impulsive and decreased safety awareness and best to provide supervision and assist at this time. M6 OT- IP Functional Cognition Start: 02/20/21 12:19 Freq: Status: Active Protocol: Document 02/20/21 11:42 [facility] (Rec: 02/20/21 12:32 [facility] [id number]) Cognitive Factors Limiting Selfcare Function Cognitive Ability Level of Alertness Alert Patient Orientation Name,Age,Birthday,Month,Date, Year,Day of Week,Place, Situation Attention Span Ability Capable of Focused Attention, Capable of Sustained Attention Ability to Follow Commands Able to Follow One Step Commands Safety Awareness Decreased Ability to Apply Precautions,Underestimates Need for Assistance Cognitive Comments Cognitive Assessment Comments Pt a bit impulsive and needing vc for safety and to incorporate her back precautions. Pt now agrees that it would best for to assist her. Pt's states will not be going to work and be able to stay with her to assist for the rest of the week. OT- Vision and Hearing OT- Hearing Assessment OT- Hearing Assessment WFL OT- Vision Assessment Visual Acuity WFL M7 OT- IP Mobility and Balance Start: 02/20/21 12:19 Freq: Status: Active Protocol: Document 02/20/21 11:42 [facility] (Rec: 02/20/21 12:32 [facility] [id number]) OT-Transfer Assessment Sit to and From Stand Sit to and from Stand Standby Assistance Transfers Transfer Ability Standby Assistance,Contact Guard Assistance Technique Transfer Destination Bed Transfer Technique Stand Step Pivot Devices Transfer Assistive Devices Gait Belt,Front Wheeled Walker Comments Mobility Comments CGA to SBA with FWW. OT- Balance Assessment Sitting Balance and Reactions Static Sitting Balance Ability Good Dynamic Sitting Balance Ability Good Standing Balance and Reactions Static Standing Balance Ability Fair M8 OT- IP Objective Assessments Start: 02/20/21 12:19 Freq: Status: Active Protocol: Document 02/20/21 11:42 [facility] (Rec: 02/20/21 12:32 [facility] [id number]) OT-Muscle Tone Assessment Muscle Tone WNL Yes M9 OT- IP Assessment and Plan Start: 02/20/21 12:19 Freq: Status: Active Protocol: Document 02/20/21 11:42 [facility] (Rec: 02/20/21 12:32 [facility] [id number]) OT Summary Assessment and Plan Potential Rehabilitation Potential Good Analytic Complexity at Evaluation Low Summary OT Impairments Functional Mobility,Dressing, Toileting,Bathing Progress Towards Goals Progressing Toward Goals Assessment Summary Pt low complexity and main barriers are pt is impulsive, needing vc to slow down, and needing cues to adhere to her back precautions. Pt has a supportive who was present for caregiver training and independent to assist her for ADl and mobility needs. LB dressing equipment issued to pt. Goals Grooming Goal Independent Dressing Goal Independent Toileting Goal Independent Bathing Goal Independent Toilet Transfer Goal Independent Shower Transfer Goal Independent Patient/Caregiver Education Goal Demonstrate Post-Op Precautions Days to Meet Goals 5 Frequency of Treatment Frequency Of Treatment Once a Day Treatment Plan OT Treatment Plan ADL Training,Functional Mobility,Patient/Family Education,Discharge Planning Discharge Recommendations OT Discharge Recommendations Home with 24/ Assist Available Home Equipment Needs Showr chair, HHPS Transportation Needs at Discharge Private Vehicle
--- NOTE | 2021-02-20 12:24 | CM.DANOTE ---
DCP assessment: Patient is a 80 yr old female who was admitted for spinal surgery preformed by Dr Schuler. patient currently lives in [place] with her Ross in a single level home. Patient is Independent with all ADLs but does use a 4WW for outdoor mobility. patient had caregiver training set up for 10am and is very ready to DC home with family. I: medicare and for life P: DC home with family no DC needs Identified Aniya Agosto RNforeign exchange student coordinator Discharge Planning/Care Management CM Discharge Assessment Start: 02/19/21 10:43 Freq: Status: Active Protocol: Document 02/19/21 10:43 HS (Rec: 02/19/21 10:45 [id number]) Discharge Planning Assessment Assigned Research Program Assistant Aniya Agosto RN Case Manger DPOA/Assigned Designee Name Ross Donohue () Contact Information [phone] Advance Directives? No Advance Directives on File No History Provided By Patient Has Patient been admitted in last 30 No days? Prior Living Arrangements House Household Members spouse Type of transporation used prior to Drives own vehicle admit Independent with ADL's Yes Is patient alert and oriented? Yes Caregiver for Another No Barriers to Discharge No Discharge Plan Home Transportation Arrangement Patients will provide transportation Referrals Initiated None needed Whiteboard Updated in Patient Room with Yes name and ext. # of Research Program Assistant Review Status In Process Next Review Type Continued Stay Review Pre-Anesthesia Assessment Start: 02/10/21 09:46 Freq: Status: Complete Protocol: Document 02/10/21 09:46 CAB (Rec: 02/10/21 10:27 CAB [id number]) Pre-Anesthesia Assessment Patient Information Reviewed Via Phone Assessment Assessment Completed With Patient Diagnostic Results BMP/CMP,CBC Comment Outside labs scanned, EKG done , not here, COVID screen @ 02/16/21 Primary Care Provider Alessio Gibson Seen Specialist in Last 12 Months Yes Specialist Seen Supervisor Ovens,Orthopedist Primary Language Swazi Preferred Language Swazi [employer] Required No Height 157.48 cm Weight 68.492 kg Body Mass Index (BMI) 27.6 Hearing Ability Normal Visual Assist None Dentition Type Partial- Upper,Full- Upper Barriers to Learning None Hx Anesthesia Reactions No Hx Family Anesthesia Reaction Yes: My sister did not wake up after anesthesia, went into a coma Hx Malignant Hyperthermia No Hx Blood Transfusions No Anesthesia Review Requested No alcohol intake former Alcohol Intake Frequency Other: Quit over 20 years ago Smoking Status Former smoker Tobacco type cigarettes Has it been 2 weeks or less since Yes patient quit smoking how long ago did patient quit smoking Quit approx 2 weeks ago Substance Use Type does not use Pain Present Pain Reported Musculoskeletal Symptoms Abnormal Gait,Back Pain, Difficulty Walking,Radiating Pain into Limb History of Falling (Recent or History of No ) Patient is completely paralyzed or No completely immobile Prosthesis or Orthotic Device Front Wheel Walker Mental Status Oriented to own ability Is patient on oxygen? No Does patient have [place]/SOB Yes: r/t COPD, emphysema Hx Sleep Apnea No Currently Taking a Beta Delvis Yes: Metoprolol Can You Climb a Flight of Stairs Without Yes SOB Hx Chest Pain No Hx SOB Yes: r/t COPD, emphysema Hx Syncope or Dizziness Yes: Ocassional dizziness Anti-Coagulant Therapy Yes: Plavix-pt advised to hold 02/10/[address] Schuler-will check on if to hold ASA Has a Supervisor Ovens Yes: Dr. Hernandez-last visit 12/11/20 scanned in Cardiac Testing No Hx Pacemaker/ICD No Pacemaker Rep Required? No Diet Type At Home Regular dysphagia No Gastrointestinal Symptoms Constipation Urinary Catheter Present No Hx Urinary Self Catheterization No Diabetes Yes HgbA1C 6.9 Date 02/04/21 Patient No Lactating No Presence of External or Internal Medical Yes: Bilat IOLs Devices Have you had any close contact with No someone diagnosed with COVID-19? Received a COVID vaccine? Yes: Moderna w/booster Received all doses? Yes Marital Status Lives With spouse Prior Living Arrangements House Number of Floors (Floors) One Floor Support System Spouse Does the Patient Have Assistance After Yes Surgery Patient Discharge Plan Description Return Home Comment Pt advised 2 day length of stay per surgeon Feels Safe in Current Environment Yes Been Physically Hurt or Threatened By a No Person in Current Environment Do you have thoughts of harming yourself None or others? Are you currently considering suicide? No Do you have a plan to hurt yourself or No Plan others? Do You Have Any Spiritual Beliefs That No May Affect Your HC Choices? Do You Have Any Cultural Practices That No May Affect Your HC Choices? Comment Christianity Who Can We Speak to About Patient's Care Family only Identifying Code for Release of Patient Declines to issue Information Health Care Proxy/Next of Kin Ross () Health Care Proxy Emergency Contact Name Ross () Emergency Contact Advance Directives? No Power of Airport Traffic Controller No PAC Instructions Diabetes instructions,Durable medical equipment,Medications to take/avoid,Nasal antibiotic ,No ETOH/petroleum product on skin DOS,NPO,Post-op transportation,Sturdy shoes/ comfortable clothes,Do not bring valuables and remove jewelry
--- NOTE | 2021-02-20 12:42 | PC.NURSE ---
Pt and spouse present for discharge teaching. Pt's IV has been discontinued per previous shift. VO given by PA on rounds to change pt's dressing prior to dc. Dsg removed and noted two vertical incisions well approximated with denilson. No redness, drainage, odor. Replaced with bordered dsg. Provided dc instructions and reviewed them in detail. Discussed activity restrictions, s/s of wound infection, medication regimen, pain med regimen. Pt and spouse verbalize instruction/education. Pt requested PRN rx prior to dc. Pt/spouse expressed concern about not being able to obtain pain meds from their specified pharmacy until tuesday. Called to PA and left message to return call re: sending Rx to different pharmacy. No answer from PA. Called to pt's preferred pharmacy and requested clarification of medication fill. Pharmacy staff state that medications will be ready today prior to 1600. This information is related to pt/spouse who verbalize understanding. All belongings are gathered and sent with pt/spouse. Pt transferred independently to w/c and left in no apparent distress.
== END 2021-02-20 12:39 | disposition home or self-care (01) ==
LOC: OR 11:22 → AC 14:31
PROVIDERS: PCP Family Medicine; Referring Provider Orthopaedic Surgery Orthopaedic Surgery of the Spine; Visit Provider Orthopaedic Surgery Orthopaedic Surgery of the Spine
PROC: (CPT 22633; principal; 2021-02-18 13:15)
DX: M43.16 Spondylolisthesis, lumbar region (principal); M48.062 Spinal stenosis, lumbar region with neurogenic claudication; I10 Essential (primary) hypertension; E11.9 Type 2 diabetes mellitus without complications; J45.909 Unspecified asthma, uncomplicated; F17.210 Nicotine dependence, cigarettes, uncomplicated; Z86.73 Personal history of transient ischemic attack (TIA), and cerebral infarction without residual deficits; Z79.84 Long term (current) use of oral hypoglycemic drugs
CPT/HCPCS: 22633; 63047; 63048; 22634; 22853 ×2; 22842; 20939; 36415; 72100; 76000; 82962; 85014; 85018; 94760; 97116; 97162; 97165; 97530; 97535; C1776; C9290; J0171; J0330; J0690; J1100; J1170; J2405; J2704; J3010

== ENCOUNTER → 2021-08-03 12:10 | Outpatient (CLI) | payer MEDICARE, OTHER, SELFPAY ==
[2021-02-18 20:05] VITALS: BMI 27.6
--- NOTE | 2021-08-03 12:12 | DI.US.S_ITS ---
PROCEDURE: US SOFT TISSUE HEAD AND NECK INDICATIONS: LOCALIZED ENLARGED LYMPH NODES TECHNIQUE: Real-time scanning was performed of the neck region of interest, with image documentation. COMPARISON: [facility], MR, MR ANGIO NECK WITH/WITHOUT CONTRAST, 06/20/2020, 14:30. FINDINGS: Sonographic images within the left neck of area palpable concern demonstrate no focal fluid collection, mass lesion or area of architectural distortion. IMPRESSION: Unremarkable exam. If concern persists, CT is recommended. Dictated by: Dana Page M.D. on 08/03/2021 at 16:57 Approved by: Dana Page M.D. on 08/03/2021 at 16:58
== END ==
PROVIDERS: PCP Family Medicine; Referring Provider Family Medicine; Visit Provider Family Medicine
DX: R59.0 Localized enlarged lymph nodes (principal)
CPT/HCPCS: 76536

== ENCOUNTER → 2021-09-29 08:41 | Outpatient (CLI) | payer MEDICARE, OTHER, SELFPAY ==
[2021-02-18 20:05] VITALS: BMI 27.6
--- NOTE | 2021-09-29 08:45 | DI.CT.S_ITS ---
PROCEDURE: CT HEAD/BRAIN WO CON INDICATIONS: transient cerebral ischemic attacks TECHNIQUE: Noncontrast 4.5 mm thick angled axial sections acquired from the foramen magnum to the vertex, with coronal and sagittal reformats. For radiation dose reduction, the following was used: automated exposure control, adjustment of mA and/or kV according to patient size. COMPARISON: 07/03/2020. FINDINGS: Image quality: Excellent. CSF spaces: Basal cisterns are patent. No extra-axial fluid collections. The ventricles are symmetric in size and shape. Brain: No intracranial bleeds or masses. There is cerebral volume loss for age, with resultant ventricular and sulcal prominence. There are periventricular and deep white matter chronic small vessel ischemic changes. There is intracranial internal carotid artery atherosclerosis. Skull and face: Calvarium and visualized facial bones appear intact, without suspicious lesions. Sinuses: Visualized sinuses and mastoids are clear. IMPRESSION: No acute intracranial finding. Mild global cerebral volume loss and chronic microvascular ischemic change. Dictated by: Tanner Leija M.D. on 09/29/2021 at 9:37 Approved by: Tanner Leija M.D. on 09/29/2021 at 9:39
== END ==
PROVIDERS: PCP Family Medicine; Referring Provider Physician Assistant; Visit Provider Physician Assistant
DX: R55 Syncope and collapse (principal); I25.10 Atherosclerotic heart disease of native coronary artery without angina pectoris; G45.8 Other transient cerebral ischemic attacks and related syndromes
CPT/HCPCS: 70450

== ENCOUNTER → 2021-11-05 11:50 | Outpatient (CLI) | payer MEDICARE, OTHER, SELFPAY ==
[2021-02-18 20:05] VITALS: BMI 27.6
--- NOTE | 2021-11-05 11:52 | DI.ECHO.S_ITS ---
[facility]---------+ [facility] +---------+ : : [address] : : : : [id number] : : : : Phone: [phone] +---------+ Echocardiogram Report + + :Name: KERRIE BEST Study Date: 11/05/2021 Height: 63 in : :[facility] ReadingLocation: Weight: 150 lb : : Gender: Female BSA: 1.7 m2 : :: 1940 Age: 81 yrs BP: 162/87 mmHg: :Reason For Study: Syncope : :Ordering Physician: SHERRY, : :JANUSZ Performed By: Sina Hernadez : :Referring: JANUSZ POWELL : + + Interpretation Summary The ejection fraction is estimated to be 60-65%. There is no significant valvular heart disease. Procedure: A two-dimensional transthoracic echocardiogram with color flow and Doppler was performed. The study quality was technically adequate. Comparison is made with the echocardiogram of 06/21/2017. The patient was in normal sinus rhythm during the exam. Left Ventricle: The left ventricle is normal in size and wall thickness. Left ventricular systolic function is normal. The ejection fraction is estimated to be 60-65%. There are no focal wall motion abnormalities. Diastolic function could not be accurately assessed due to unobtainable data. Right Ventricle: The right ventricle is normal in size and function. Atria: Both atria are normal in size. The interatrial septum grossly appears intact with no obvious evidence for an atrial septal defect. Mitral Valve: There is mild mitral annular calcification. There is no mitral valve stenosis. There is no mitral regurgitation noted. Aortic Valve: There is mild aortic valve sclerosis. No aortic regurgitation is present. Tricuspid Valve: The tricuspid valve is normal in structure and function. No tricuspid regurgitation. Pulmonary artery pressures cannot be estimated because of the lack of a measurable TR jet velocity. Pulmonic Valve: The pulmonic valve is not well seen, but is grossly normal. There is no pulmonic valvular regurgitation. Great Vessels: The aortic root is normal size. The dimensions of the ascending aorta are normal. The IVC is of normal diameter and collapses greater than 50% with a sniff. This suggests a low right atrial pressure of 3 mm Hg. Pericardium/ Pleura There is no pericardial effusion. There is no pleural effusion. MMode/2D Measurements & Calculations LVIDd: 4.1 cm LVOT diam: 1.9 cm LVIDs: 2.8 cm Ao root diam: 2.7 cm FS: 31.7 % asc Aorta Diam: 3.3 cm IVSd: 1.0 cm LVPWd: 1.0 cm LV mahan. diameter/BSA (cm/m^2): 2.4 LV sys. diameter/BSA (cm/m^2): 1.6 LA dimension: 3.1 cm RA long axis: 4.2 cm LA A2 area: 14.3 cm2 LA A4 area: 16.5 cm2 LA length (vol): 4.6 cm LA vol: 43.7 ml LA vol index: 25.6 ml/m2 TAPSE_phl: 1.9 cm Doppler Measurements & Calculations Ao V2 max: 139.0 cm/sec LVOT Max Christian: 99.9 cm/sec Ao V2 mean: 99.9 cm/sec LV V1 max P.0 mmHg Ao max P.0 mmHg LV V1 VTI: 21.3 cm Ao mean P.0 mmHg JAYLON(I,D): 2.3 cm2 Ao V2 VTI: 26.6 cm JAYLON(V,D): 2.0 cm2 sev ratio: 0.80 JAYLON indexed to BSA (cm^2/m^2): 1.3 MV E max christian: 83.6 cm/sec MV V2 mean: 85.3 cm/sec MV A max christian: 115.0 cm/sec MV mean P.0 mmHg MV E/A: 0.73 MV V2 VTI: 29.0 cm Med Peak E' Christian: 4.8 cm/sec E/E' med: 17.3 Lat Peak E' Christian: 6.4 cm/sec E/E' lat: 13.1 E/e' average: 15.2 MV dec time: 0.27 sec MVA(VTI): 2.1 cm2 SV(LVOT): 60.4 ml AV VR_phl: 0.72 JAYLON(VTI)/BSA_phl: 1.3 MV P1/2t-pr_phl: 79.0 msec Reading Physician:09:29 AM
== END ==
PROVIDERS: PCP Family Medicine; Referring Provider Physician Assistant; Visit Provider Physician Assistant
DX: R55 Syncope and collapse (principal); I10 Essential (primary) hypertension; I35.8 Other nonrheumatic aortic valve disorders; I25.10 Atherosclerotic heart disease of native coronary artery without angina pectoris; I73.9 Peripheral vascular disease, unspecified; Z86.73 Personal history of transient ischemic attack (TIA), and cerebral infarction without residual deficits
CPT/HCPCS: 93306

== ENCOUNTER → 2022-09-23 07:53 | Outpatient (CLI) | payer MEDICARE, OTHER, SELFPAY ==
[2021-02-18 20:05] VITALS: BMI 27.6
--- NOTE | 2022-09-23 | DI.ECHO.S_ITS ---
[facility]---------+ [facility] +---------+ : : [address] : : : : [id number] : : : : Phone: [phone] +---------+ Echocardiogram Report + + :Name: KERRIE BEST Study Date: 09/23/2022 Height: 62 in : :[facility] ReadingLocation: Weight: 140 lb : : Gender: Female BSA: 1.6 m2 : :: 1940 Age: 82 yrs BP: 151/84 mmHg: :Reason For Study: Shortness of Breath : :Ordering Physician: Kam, : :Gamal Performed By: Katie Hayward : :Referring: GAMAL ISRAEL : + + Interpretation Summary The left ventricular cavity is small. The left ventricle is hyperdynamic. The ejection fraction is estimated to be 75-80%. There is no echo evidence for significant left ventricular outflow tract obstruction. In comparison to previous study, LV function is hyperdynamic. MV E/A: 0.79 Med Peak E' Ebony: 4.7 cm/sec E/E' med: 24.1 The right ventricle is normal size. The right ventricular systolic function is normal. No significant valvular pathology seen. The IVC is of normal diameter and collapses greater than 50% with a sniff. This suggests a low right atrial pressure of 3 mm Hg. Procedure: A two-dimensional transthoracic echocardiogram with color flow and Doppler was performed. The study quality was technically adequate. Comparison is made with the echocardiogram of 11/05/2021. The patient was in normal sinus rhythm during the exam. Left Ventricle: There is mild concentric left ventricular hypertrophy. The left ventricular cavity is small. Proximal septal thickening is noted. There is no echo evidence for significant left ventricular outflow tract obstruction. There is no thrombus. The ejection fraction is estimated to be 75-80%. The left ventricle is hyperdynamic. There are no focal wall motion abnormalities. MV E/A: 0.79 Med Peak E' Ebony: 4.7 cm/sec E/E' med: 24.1. Right Ventricle: The right ventricle is normal size. The right ventricular systolic function is normal. Atria: The left atrial size is normal. There has been no significant change since the previous study. Right atrial size is normal. There is no Doppler evidence for an interatrial shunt. Mitral Valve: The mitral valve leaflets are mildly calcified. There is mild to moderate mitral annular calcification. The mitral valve chordae are thickened and/or calcified. The mitral valve mean gradient is 4.5 mmHg. No significant mitral valve stenosis. There is no mitral regurgitation noted. Aortic Valve: The aortic valve is trileaflet. The aortic valve opens well. There is moderate aortic valve sclerosis. There is discrete nodular thickening of the non- coronary cusp. There is no aortic valve stenosis. No aortic regurgitation is present. Tricuspid Valve: The tricuspid valve is normal. There is no tricuspid stenosis. There is trace tricuspid regurgitation. Pulmonary artery pressures cannot be estimated because of the lack of a measurable TR jet velocity. Pulmonic Valve: The pulmonic valve is not well seen, but is grossly normal. There is no pulmonic valvular stenosis. There is trace pulmonic regurgitation. Great Vessels: The aortic root is normal size. The ascending aorta is normal in size. The aortic arch could not be visualized. The pulmonary artery is normal size. The IVC is of normal diameter and collapses greater than 50% with a sniff. This suggests a low right atrial pressure of 3 mm Hg. Pericardium/ Pleura There is no pericardial effusion. There is no pleural effusion. MMode/2D Measurements & Calculations LVIDd: 3.5 cm LVOT diam: 1.9 cm LVIDs: 2.0 cm Ao root diam: 2.8 cm FS: 42.9 % asc Aorta Diam: 2.8 cm IVSd: 1.4 cm LVPWd: 1.3 cm LV mahan. diameter/BSA (cm/m^2): 2.1 LV sys. diameter/BSA (cm/m^2): 1.2 LA A2 area: 14.7 cm2 RA long axis: 4.0 cm LA A4 area: 12.0 cm2 RA area: 9.1 cm2 LA length (vol): 4.8 cm RA vol: 17.5 ml LA vol: 31.5 ml RA : 10.7 ml/m2 LA vol index: 19.2 ml/m2 RVD1 (basal): 3.4 cm LVLs ap4: 4.6 cm LVLd ap2: 5.9 cm TAPSE_phl: 2.1 cm LVLs ap2: 4.8 cm Doppler Measurements & Calculations Ao V2 max: 134.0 cm/sec LVOT Max Ebony: 85.3 cm/sec Ao V2 mean: 98.2 cm/sec LV V1 max P.9 mmHg Ao max P.0 mmHg LV V1 VTI: 21.4 cm Ao mean P.0 mmHg JAYLON(I,D): 1.9 cm2 Ao V2 VTI: 31.2 cm JAYLON(V,D): 1.8 cm2 sev ratio: 0.69 JAYLON indexed to BSA (cm^2/m^2): 1.2 MV E max ebony: 114.0 cm/sec PA V2 max: 88.1 cm/sec MV A max ebony: 144.0 cm/sec PA V2 mean: 61.5 cm/sec MV E/A: 0.79 PA mean P.0 mmHg Med Peak E' Ebony: 4.7 cm/sec PA pr(Accel): 43.5 mmHg E/E' med: 24.1 Lat Peak E' Ebony: 5.0 cm/sec E/E' lat: 22.7 E/e' average: 23.4 MV dec time: 0.20 sec MVA(VTI): 1.9 cm2 MV V2 mean: 97.6 cm/sec SV(LVOT): 60.7 ml MV mean P.4 mmHg MV V2 VTI: 32.6 cm AV VR_phl: 0.64 MV P1/2t-pr_phl: 60.0 msec JAYLON(VTI)/BSA_phl: 1.2 Reading Physician:05:54 PM
--- NOTE | 2022-09-23 | DI.NM.S_ITS ---
PROCEDURE: NM MARGARETTE PERF SPECT R&S PHARM Rest and pharmacological stress myocardial perfusion SPECT with gated imaging and ejection fraction RADIOPHARMACEUTICAL: 11.4 mCi Tc-99m tetrafosmin IV at rest and 24.9 mCi Tc-99m tetrafosmin IV at peak effect of pharmacological stress. [id number] was performed. INDICATIONS: Shortness of breath TECHNIQUE: Radiopharmaceutical was injected at peak stress test, and also at rest. SPECT images were obtained. SPECT myocardial perfusion images were displayed in short axis, horizontal long axis, and vertical long axis views. Gated images were reviewed using Phorest software. COMPARISON: None. CARDIAC STRESS: A pharmacologic stress test was performed under the supervision of an attending staff, using an infusion of lexiscan 0.4mg IV X1. Hemodynamic data: There is normal blood pressure and heart rate response to pharmacologic stress. Symptoms: The patient denied anginal chest pain. Aminophylline: none EKG: No diagnostic changes of ischemia; no ectopy. FINDINGS: Raw data: There is good myocardial uptake of radiotracer. No significant motion artifacts. Left ventricle function: Gated images demonstrate normal left ventricular wall thickening. No segmental wall motion abnormalities. No transient ischemic dilation; TID is 1.12 (normal less than 1.3). Left ventricle resting end diastolic volume is 51 mL. Left ventricle stress ejection fraction is 92%; normal range is above 45%. Myocardial perfusion: There is normal distribution of activity in the right and left ventricular myocardium. No fixed or reversible perfusion defects. IMPRESSION: Low risk, normal pharmaceutical nuclear stress test 1) No perfusion evidence of ischemia or infarction. 2) Normal left ventricular size, wall motion, and systolic function (EF post stress 92%). 3) No ST changes with lexiscan. 4) No angina during the study. 5) Compared to the nuc stress test done 06/30/2018, no significant change. Dictated by: Esha Sood MD on 09/24/2022 at 13:11 Approved by: Esha Sood MD on 09/24/2022 at 13:13
== END ==
PROVIDERS: PCP Family Medicine; Referring Provider Nurse Practitioner Acute Care; Visit Provider Nurse Practitioner Acute Care
DX: I34.81 Nonrheumatic mitral (valve) annulus calcification (principal); I35.8 Other nonrheumatic aortic valve disorders; R06.02 Shortness of breath
CPT/HCPCS: 78452; 93017; 93306; A9502; J2785

== ENCOUNTER → 2022-10-06 09:25 | Outpatient (CLI) | payer MEDICARE, OTHER, SELFPAY ==
[2021-02-18 20:05] VITALS: BMI 27.6
--- NOTE | 2022-10-06 | DI.RAD.S_ITS ---
PROCEDURE: FL BARIUM SWALLOW W SPEECH INDICATIONS: Other specified symptoms and signs involving the circulatory COMPARISON: None. TECHNIQUE: Examination was conducted in conjunction with speech pathology per standard protocol. In the lateral projection, filming was performed of the patient swallowing. AP projection filming may also be performed with patient swallowing. COMPARISON: FINDINGS: The oral preparatory phase appears normal, with proper containment. Laryngeal penetration was observed. No tracheal aspiration visualized. IMPRESSION: No aspiration visualized. Please see the speech pathologist report for additional details. Dictated by: Asim Gutierrez M.D. on 10/06/2022 at 10:49 Approved by: Asim Gutierrez M.D. on 10/06/2022 at 10:51
--- NOTE | 2022-10-06 12:38 | ST.SWALLOW ---
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 Pt reported that she has had 6-7 strong choking episodes over the past 6 months. One episode resulted in her blacking out at home. Pt has a PMH of a CVA in the 80s, emphasema and COPD, which complicates swallowing. Pt reports that she gets SOB during meals. Subjective Observations Pt was seated in the fluoroscopy chair. Instructions and procedures were described. Pt indicated she understood and was in agreement to proceed. Patient Positioning Position View Lat-A/P Imaging Lateral View Textures Administered Trials Presented Thin Liquid via Spoon (IDDSI 0 ),Thin Liquid via Cup (IDDSI 0 ),Mildly Thick Liquid via Spoon (IDDSI 2),Mildly Thick Liquid via Cup (IDDSI 2), Extremely Thick Liquid via Spoon (IDDSI 4),Regular (IDDSI 7) Barium Tablet Yes The IDDSI Framework Protocol: IDDSI.1 Oral Impairment Source: The Modified Barium Swallow Impairment Profile (MBSImP??) Lip Closure No labial escape Tongue Control During Bolus Hold Cohesive bolus between tongue to palatal seal Bolus Transport/Lingual Motion Delayed initiation of tongue motion Oral Residue Trace residue lining oral structures Location Tongue,Lateral sulci Initiation of Pharyngeal Swallow Bolus head at pyriforms Additional Oral Impairment Observations Pt presented with a right facial weakness and droop. Pt' s dentition included an upper denture with a lower partial, both fitting well. Pt was unable to puff up right side of her face. However, she was able to produce a symmetrical smile. Lingual ,velar, and labial structures were wfl. DKS was slower than expected. The pt attributed it to her accent as she was originally from [facility]. ORAL PHASE: Pt demonstrated good bolus hold and control as well as AP transition. Mastication was WFL with pt noting pocketing othe right side of her mouth. She was able to self-clear the residue with lateral tongue sweep. Pharyngeal Impairment Source: The Modified Barium Swallow Impairment Profile (MBSImP??) Laryngeal Elevation Part.sup.move.thyroid cart/ part.approx.arytenoids to epiglot.petiole Anterior Hyoid Excursion Partial anterior movement Epiglottic Movement Partial inversion Laryngeal Vestibular Closure Incomplete; narrow column air/ contrast in laryngeal vestibule Pharyngeal Stripping Wave Present - diminished Pharyngoesophageal Segment Opening Complete distention & complete duration; no obstruction of flow Tongue Base Retraction Wide column of contrast/air betwn tongue base & post. pharyngeal wall Pharyngeal Residue Collection of residue within/ on pharyngeal structures Location Diffuse (>3 areas) Additional Pharyngeal Impairment Premature spillage of the Observations bolus head to the pyriforms was observed across all trials . Tongue base weakness was noted, negatively impacting hyolaryngeal elevation and epiglottic inversion. Inversion of the epiglottis was observed to range from no inversion to full inversion. Solid trials were able to elicit full inversion as these trials are more bulky with weight. Liquid trials resulted in a range from a non -inverted epiglottis to horizontal at best. This weakened the closure of the laryngeal vestibule and resulted in laryngeal penetration x3 (pt did not reflexively cough). PAS =3 ( Penetration Aspiration Scale 3 defined - penetrates larynx above the folds visible laryngeal residue). Compensatory head positioning with a right head turn demonstrated no penetration. A/P View Textures Administered Trials Presented Thin Liquid via Spoon (IDDSI 0 ) The IDDSI Framework Protocol: IDDSI.1 A/P View Observations Pharyngeal Contraction Complete Esophageal Clearance Upright Position Complete clearance; esophageal coating Vocal Fold Function Decrease Approxim. Left Esophageal Function WFL Clinical Impressions Dysphagia Type Pharyngeal Findings Pt presented with pharyngeal phase dysphagia characterized by weak tongue base, hyolaryngeal elevation, inconsistent inversion of the epiglottis and weakened closure of the laryngeal vestibule. Successful protection of the airway was accomplished with a right head turn, indicating weakened voca lfold closures strength (left side). This may be related to pt's history of a remote CVA, or presbylaryngis, given the pt's age. Rehabilitation Potential Good Patient Appropriate for Therapy Yes Recommendations Diet Liquids Order Thin (IDDSI 0) Diet Order Regular (IDDSI 7) Medication Recommendation As Tolerated,Whole in Carrier, Crushed in Carrier Aspiration Precautions Recommended Precautions Upright at 90 Degrees, Alternate Liquids/Solids, Frequent Rest Periods,Small Bites/Sips,Lingual Sweep,Check for Pocketing,Right Head Turn ,Liquids from Cup Treatment Plan Therapy Recommendations Outpatient Speech Therapy,Base of Tongue Exercises Therapy Strategy Recommendations Sitting Upright (90 deg),Turn Head Right,Check for Pocket,No Straw,Liquids from Cup,Small Bites and Sips,Alternate Liquids/Solids Short Term Goals Pt will be referred for outpatient swallowing therapy, targeting increased pharyngeal strength to increase safe tolerance of PO intake.
== END ==
PROVIDERS: PCP Internal Medicine; Referring Provider Internal Medicine; Visit Provider Internal Medicine
DX: R09.89 Other specified symptoms and signs involving the circulatory and respiratory systems (principal)
CPT/HCPCS: 74230; 92611

== ENCOUNTER → 2024-11-02 10:11 | Outpatient (CLI) | payer MEDICARE, OTHER, SELFPAY ==
[2023-09-26 08:36] VITALS: BMI 27.6
--- NOTE | 2024-11-02 10:13 | DI.US.S_ITS ---
PROCEDURE: US CAROTID DOPPLER BI INDICATIONS: BILERAL CAROTID ARTERY STENOSIS TECHNIQUE: Color and pulse Doppler interrogation was performed of both carotid systems, with image documentation and velocity measurements. COMPARISON: [facility], [place], US CAROTID DOPPLER BI, 02/11/2020, 11:10. FINDINGS: Stenosis calculations are based on SRU (Society of Radiologists in Ultrasound) criteria. Right side: Brachial blood pressure: 114/72 mm Hg. Common carotid artery peak systolic velocity: 63 cm/sec. Internal carotid artery peak systolic velocity: 167 cm/sec. Internal carotid artery end diastolic velocity: 20 cm/sec. External carotid artery peak systolic velocity: 242 cm/sec. ICA/CCA peak systolic ratio: 2.7. Koenig scale imaging description: Extensive atherosclerotic plaques are noted in distal common carotid artery and proximal internal and external carotid arteries. Percent internal carotid artery stenosis: Greater than 70%. Vertebral artery: Flow direction is retro grade. Left side: Brachial blood pressure: 133/71 mm Hg. Common carotid artery peak systolic velocity: 82 cm/sec. Internal carotid artery peak systolic velocity: 103 cm/sec. Internal carotid artery end diastolic velocity: 19 cm/sec. External carotid artery peak systolic velocity: 75 cm/sec. ICA/CCA peak systolic ratio: 1.3. Koenig scale imaging description: Mild atherosclerotic plaques are seen in distal common carotid artery and proximal internal carotid artery. Percent internal carotid artery stenosis: Less than 50%. Vertebral artery: Flow direction is antegrade. IMPRESSION: 1. In the right carotid artery, there is greater than 70% stenosis based on peak systolic velocity criteria. 2. In the left carotid artery, there is less than 50% stenosis based on peak systolic velocity criteria. 3. Retrograde flow in right vertebral artery. Antegrade flow in left vertebral artery. Dictated by: Fish Corea M.D. on 11/03/2024 at 15:57 Approved by: Fish Corea M.D. on 11/03/2024 at 15:58
== END ==
PROVIDERS: PCP Internal Medicine; Referring Provider Internal Medicine Cardiovascular Disease; Visit Provider Internal Medicine Cardiovascular Disease
DX: I65.23 Occlusion and stenosis of bilateral carotid arteries (principal)
CPT/HCPCS: 93880